=== PATIENT | male | born 1980 | race Caucasian/White ===

== ENCOUNTER → 2020-01-10 15:22 | Outpatient (CLI) | payer OTHER, SELFPAY ==
--- NOTE | ~2020-01-10 | CT_ITS ---
EXAMINATION: CT abdomen pelvis w con EXAM DATE: 01/10/2020 16:00 INDICATION: Left lower quadrant abdominal pain. Nausea. TECHNIQUE: Spiral CT of the abdomen and pelvis was performed following intravenous injection of 100 m L Omnipaque 350. Axial, coronal and sagittal images were reviewed. The dose-length product (DLP) fo r this examination was 1242.19 mGy-cm. The exposure was tailored according to patient size (auto mA exposure control), and iterative reconstruction (ASIR) was used as additional dose reduction techniqu e. Comparison is made to prior examination from 12/02/2016. FINDINGS: The liver, spleen, adrenal glands and pancreas are unremarkable. There are cholecystectomy clips. Portal and splenic veins are patent. Kidneys enhance symmetrically. There is no hydronephr osis. There is a left renal hypodensity likely cyst measuring 1.3 cm. The prostate is unremarkable. The bladder is unremarkable. There is no retroperitoneal or pelvic lymphadenopathy. Small umbilic al fat-containing hernia. The appendix is normal. There is mild to moderate descending and sigmoid colonic diverticulosis. The re is no adjacent inflammatory change to suggest diverticulitis. The stomach and small bowel are unre markable. There is expected amount of colonic stool. No free intraperitoneal gas. The heart is n ormal in size. There are no pericardial or pleural effusions. The lung bases are unremarkable. The bones are unremarkable. IMPRESSION: 1. No acute intra-abdominal findings. 2. Mild to moderate colonic diverticulosis. Reviewed, dictated and finalized at location A. PERSON
== END ==
PROVIDERS: PCP Internal Medicine; Visit Provider Internal Medicine
DX: R10.9 Unspecified abdominal pain (principal); K57.90 Diverticulosis of intestine, part unspecified, without perforation or abscess without bleeding
CPT/HCPCS: 74177; Q9967

== ENCOUNTER 2024-04-20 08:15 | Emergency (ER) | payer OTHER, SELFPAY ==
[2024-04-20] VITALS (18 sets, daily range): BP systolic 115–146; BP diastolic 86–110; PULSE 97–112; RESP 2–22; TEMP 36.7–36.8; O2SAT 96–98
--- NOTE | ~2024-04-20 | CT_ITS ---
CT of the Abdomen and Pelvis: Indication: Abdominal pain Technique: 2.5 mm axial scans were obtained through the abdomen and pelvis following intravenous adm inistration of 100 cc of Omnipaque 350. Dose reduction technique was used on this scan by utilizing a utomated exposure control and iterative reconstruction technique. The dose-length product (DLP) was 1 834.73 mGy-cm. Findings: Scans through the lung bases are unremarkable. The liver, spleen, pancreas, adrenals and kidneys are within normal limits, aside from probable left renal cyst. Cholecystectomy clips are present. No evidence of aortic aneurysm. No lymphadenopathy. No bowel obstruction or bowel wall thickening. There is focal ring shaped area of inflammatory change with central fat attenuation in the left upper quadrant, suggestive of epiploic appendagitis or othe r focal fat necrosis or omental infarct (axial image 84) disease.. Images through the pelvis were performed. Urinary bladder unremarkable. No pelvic mass seen. No ascit es. Impression: Findings consistent with epiploic appendagitis or other focal fat necrosis/omental infarct in the lef t upper quadrant, as detailed above. Reviewed, dictated and finalized at location . Impression: Findings consistent with epiploic appendagitis or other focal fat necrosis/omen krystin infarct in the left upper quadrant, as detailed above.
--- NOTE | ~2024-04-20 | XR_ITS ---
EXAMINATION: XR chest 1V portable DATE: 04/20/2024 08:48 INDICATION: Central chest pain. TECHNIQUE: A single frontal view of the chest was obtained. COMPARISON: Chest 2 views 12/27/16 FINDINGS: Again seen is mild elevation of right hemidiaphragm. No pneumonia, pleural effusion, or pne umothorax. The heart size is normal. IMPRESSION: 1. No acute cardiopulmonary disease. Reviewed, dictated and finalized at location A.
--- NOTE | 2024-04-20 08:20 | ECG_ITS ---
[facility] [address] Test Date: 2024-04-20 Pat Name: Marito Alvares Department: Room: Gender: M Manager Icu: : 1980 Requested By: Harmeet Hannon Order Number: [id number] Jeanette MD: Nick Gaxiola D.O. Measurements Intervals [place] Rate: 105 P: 44 VT: 152 QRS: 20 QRSD: 93 T: 15 QT: 339 QTc: 449 Interpretive Statements SINUS TACHYCARDIA BORDERLINE ECG No previous ECG available for comparison Electronically Signed On 04-20-2024 09:27:34 CDT by Nick Gaxiola D.O.
[2024-04-20 08:41] LABS: Basophils Absolute Auto 0.1 K/mm3 (0.0-0.1); Basophils Percent Auto 0.6 % (0.2-1.2); Eosinophils Absolute Auto 0.1 K/mm3 (0-0.3); Eosinophils Percent Auto 0.9 % (0-4.4); Hemoglobin 17.7 g/dL (14.0-18.0); Immature Granulocyte Absolute 0.06 K/mm3 (0.00-0.031); Immature Granulocyte Percent A 0.6 % (0-0.5); Lymphocytes Absolute Auto 4.82 K/mm3 (0.9-3.2); Mean Corpuscular HGB Conc 32.8 g/dl (32-36); Mean Corpuscular Volume 85.3 fl (80-100); Mean Platelet Volume 9.5 fl (7.4-10.4); Monocytes Absolute Auto 0.6 K/mm3 (0.1-0.6); Monocytes Percent Auto 5.7 % (2.6-8.5); Neutrophils Absolute Auto 5.1 K/mm3 (1.3-6.7); Neutrophils Percent Auto 47.2 % (45.5-73.1); Platelet Count Result 449 k/mm3 (150-375); Red Blood Count 6.33 M/mm3 (4.6-6.20); Red Cell Distribution Width 13.7 % (11.5-14.5); White Blood Count 10.7 K/mm3 (4.5-10.0)
[2024-04-20 08:52] LABS: Alanine Aminotransferase 18 U/L (6-50); Albumin Level 4.6 g/dL (3.5-5.1); Alkaline Phosphatase 116 U/L (38-126); Anion Gap 9 mmol/L (4-12); Aspartate Amino Transferase 23 U/L (17-59); Bilirubin,Total 0.8 mg/dL (0.2-1.3); Blood Urea Nitrogen 6 mg/dL (9-20); Carbon Dioxide 27 mmol/L (22-30); Chloride 101 mmol/L (98-107); Estimated CRCL calculation 151 ml/min; Estimated Glomerular Filt Rate > 60; Glucose 146 mg/dL (65-110); Lipase 77 U/L (23-300); Sodium 137 mmol/L (137-145)
[2024-04-20 08:53] LABS: INR 0.9
[2024-04-20 08:54] LABS: Partial Thromboplastin Time 28.6 Seconds (22.3-36.8)
[2024-04-20 09:03] LABS: Troponin I < 0.012 ng/mL (0.000-0.034)
--- NOTE | 2024-04-20 11:52 | ECG_ITS ---
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 Measurements Intervals [place] Rate: 105 P: 38 SD: 145 QRS: 19 QRSD: 84 T: 5 QT: 346 QTc: 459 Interpretive Statements SINUS TACHYCARDIA WITH OCCASIONAL SUPRAVENTRICULAR PREMATURE COMPLEXES LOW QRS VOLTAGE IN PRECORDIAL LEADS MINIMAL Q WAVES- INFERIOR LEADS BASELINE ARTIFACT- I, II, III, AVR, AVL, AVF, V1 BORDERLINE ECG Compared to ECG 04/20/2024 08:25:44 Low QRS voltage now present Electronically Signed On 04-20-2024 12:19:47 CDT by Nick Gaxiola D.O.
[2024-04-20 12:30] LABS: Troponin I < 0.012 ng/mL (0.000-0.034)
--- NOTE | 2024-04-20 12:46 | ED.ABDPAIN ---
HPI - Abdominal Pain General Chief Complaint: Abdominal Pain Stated Complaint: abdominal pain Time Seen by Provider: 04/20/24 08:49 Source: patient Mode of arrival: ambulatory Limitations: no limitations History of Present Illness HPI narrative: 43-year-old with a history of diverticulitis, diabetes here with a complaint of upper abdominal pain started this morning. Patient states that he was diagnosed with diverticulitis a few weeks ago was started on Cipro however patient has not taken the medication as it was giving him or abdominal pain. He denied any nausea vomiting. Denies any previous history of CAD. Patient states the pain was mostly in the epigastric area. MD elicited complaint: abdominal pain Onset (ago): hour(s) (4) Pain Consistency: constant Location: epigastric Severity: mild Quality: aching Radiation: none Migration to: no migration Exacerbating factors: nothing Relieving factors: nothing Associated symptoms: denies other symptoms Related Data Home Medications Medication Instructions Recorded Confirmed colestipol 1 gram tablet 1 g PO ONCE 09/16/23 09/19/23 famotidine 40 mg tablet 40 mg PO DAILY 09/16/23 09/19/23 glimepiride 1 mg tablet 1 mg PO QAM 09/16/23 09/19/23 pantoprazole 20 mg tablet,delayed 20 mg PO QAM 09/16/23 09/19/23 release tramadol 50 mg tablet 50 mg PO Q6H PRN 09/16/23 09/19/23 Allergies Allergy/AdvReac Type Severity Reaction Status Date / Time amoxicillin Allergy Unknown Unknown Verified 09/16/23 08:51 Review of Systems Review of Systems: All systems reviewed & are unremarkable except as noted in HPI and below Constitutional: Constitutional: Reports no additional constitutional complaints Eyes: Eyes: Reports no additional eye complaints ENT: Reports system reviewed and no additional complaints, except as documented Cardiovascular: Cardiovascular: Reports no additional cardiovascular complaints Respiratory: Respiratory: Reports no additional respiratory complaints Gastrointestinal: Gastrointestinal: Reports as per HPI Musculoskeletal: Musculoskeletal: Reports no additional musculoskeletal complaints Neurologic: Reports system reviewed and no additional complaints, except as documented Psychiatric: Psychiatric: Reports no additional psychiatric complaints [facility] Past Medical History Medical History Depression GERD (gastroesophageal reflux disease) Hyperlipidemia Hypertension Kidney stones Surgical History Surgical History History of rectal surgery removal of neuroendocrine tumor in 2018 at [facility] Hx of cholecystectomy Family History Family History Other Cancer Diabetes mellitus Hypertension Social History Social History Smoking status: Never smoker Alcohol intake: never Additional occupation/education comments: disabled Exam Narrative: GENERAL: Well-appearing, well-nourished, and in no acute distress. HEAD: Normocephalic, atraumatic. EYES: PERRLA and EOMI. ENT: Nares clear, no rhinorrhea or epistaxis. Mucous membranes moist. NECK: Supple. CHEST: Clear to auscultation. No respiratory distress. HEART: Regular rate and rhythm. No murmur heard. Normal peripheral pulses. ABDOMEN: Soft, epi gastric tendenessr, nondistended, normal active bowel sounds. EXTREMITIES: Normal range of motion. No edema. SKIN: Warm, dry, no rash. NEURO: No focal deficits. Alert and oriented x3. PSYCH: Normal mood and affect. Course Course Emergency Course: Notified patient and his about the lab work, CT findings. I discussed with Dr. Margarita bowden conservative management at this time. Advised him to continue his home medications, follow-up with his primary doctor. Patient has had tramadol at home for pain control. Advised him to take continue his
== END 2024-04-20 13:04 | disposition home or self-care (01) ==
PROVIDERS: Emergency Provider Family Medicine
DX: K63.89 Other specified diseases of intestine (principal); R10.10 Upper abdominal pain, unspecified; Z79.84 Long term (current) use of oral hypoglycemic drugs; I10 Essential (primary) hypertension; E78.5 Hyperlipidemia, unspecified; K21.9 Gastro-esophageal reflux disease without esophagitis; F32.A Depression, unspecified
CPT/HCPCS: 36415; 71045; 74177; 80053; 83690; 84484; 85025; 85610; 85730; 93005; 99284; Q9967

== ENCOUNTER 2025-02-04 21:33 | Emergency (ER) | payer OTHER, SELFPAY ==
--- NOTE | ~2025-02-04 | CT_ITS ---
CT of the Abdomen and Pelvis: Indication: Abdominal pain Technique: 2.5 mm axial scans were obtained through the abdomen and pelvis following intravenous adm inistration of 100 cc of Omnipaque 350. Dose reduction technique was used on this scan by utilizing a utomated exposure control and iterative reconstruction technique. The dose-length product (DLP) was 1 836.88 mGy-cm. COMPARISON: 04/20/2024 Findings: Scans through the lung bases are unremarkable. The liver, spleen, pancreas, adrenals and kidneys are within normal limits. Cholecystectomy clips are present. No evidence of aortic aneurysm. No lymphadenopathy. There is wall thickening and inflammatory change of the mid sigmoid colon with underlying diverticula r disease, compatible with acute diverticulitis. No abscess or free air. No bowel obstruction. Images through the pelvis were performed. Urinary bladder unremarkable. No pelvic mass seen. No ascit es. Impression: Acute sigmoid diverticulitis. No abscess or free air. No bowel obstruction. Reviewed, dictated and finalized at [facility]. Impression: Acute sigmoid diverticulitis. No abscess or free air. No bowel obstruction.
--- OUTSIDE RECORDS SUMMARY | 2025-02-04 21:35 | XMS_ITS | Data Portability ---
Author Organization [place] [facility] [place], Main Office Address [address] [place] [address] Assessment Encounter Date Assessment Date Assessment LastModified by Organization Details LastModified Time 07/13/2023 07/13/2023 Blood work continue current therapy follow-up with me in 4 months he will also be follow-up with his surgeon omari Not available 07/13/2023 21:43:43 Plan of Treatment Reminders Order Date Submit Date Provider Last Modified By Organization Details Last Modified Time Details Appointments None recorded . Lab HbA1c (hemoglo bin A1c), blood 023 07/13/20 [email or web address] 25 [facility] [place], [address] [place] [address], [address], 4 12:23:28 lipid panel, serum 023 07/13/20 [facility] [place], [address] [place] [address], [address], 3 21:02:42 CMP, serum or plasma 023 07/13/20 [facility] [place], [address] [place] [address], [address], 3 21:02:57 CBC w/ auto diff 023 07/13/20 [facility] [place], [address] [place] [address], [address], 16:59:42 Referral None recorded . Procedures None recorded . Surgeries None recorded . Imaging None recorded . Medication Orders None recorded . Patient TargetsNo targets recorded. Patient InstructionsNo instructions recorded. Reason for Referral None Reported. Results Created Date Observation Date Name Description Value Unit Range Abnormal Flag Note LastModifiedBy Organization Detail LastModifiedTime 07/13/2007/13/2023 CBC/C OMPLE TE BLD COUNT W/DIF F white blood cells 11.8 x10'3 /uL 4.2-10 .8 high Not Available [facility] (Lab) [address] [place], [address], 07/13/2023 16:59:42 07/13/2007/13/2023 CBC/C OMPLE TE BLD COUNT W/DIF F red blood cells 5.95 x10'6 /uL 4.10-5 .80 high Not Available [facility] (Lab) [address] [place], [address], 07/13/2023 16:59:42 07/13/2007/13/2023 CBC/C OMPLE TE BLD COUNT W/DIF F hemoglobin 16.6 g/dL 13.2-1 7.0 Not Available [facility] (Lab) [address] [place], [address], 07/13/2023 16:59:42 07/13/2007/13/2023 CBC/C OMPLE TE BLD COUNT W/DIF F hematocrit 51.1 % 39.3-5 0.0 high Not Available [facility] (Lab) [address] [place], [address], 07/13/2023 16:59:42 07/13/2007/13/2023 CBC/C OMPLE TE BLD COUNT W/DIF F mean red cell volume 85.9 fL 80.0-9 7.0 Not Available [facility] (Lab) [address] [place], [address], 07/13/2023 16:59:42 07/13/2007/13/2023 CBC/C OMPLE TE BLD COUNT W/DIF F mean red cell hemoglobin 27.9 pg 27.0-3 3.0 Not Available [facility] (Lab) [address] [place], [address], 07/13/2023 16:59:42 07/13/2007/13/2023 CBC/C OMPLE TE BLD COUNT W/DIF F mean RBC HGB concentratio n 32.5 g/dL 31.0-3 6.0 Not Available [facility] (Lab) [address] [place], [address], 07/13/2023 16:59:42 07/13/2007/13/2023 CBC/C OMPLE TE BLD COUNT W/DIF F red cell distribution width 14.5 % 11.8-1 5.5 Not Available [facility] (Lab) [address] [place], [address], 07/13/2023 16:59:42 07/13/2007/13/2023 CBC/C OMPLE TE BLD COUNT W/DIF F platelets 434 x10'3 /uL 150-40 0 high Not Available [facility] (Lab) [address] [place], [address], 07/13/2023 16:59:42 07/13/2007/13/2023 CBC/C OMPLE TE BLD COUNT W/DIF F mean platelet volume 9.8 fL 9.0-12 .4 Not Available [facility] (Lab) [address] [place], [address], 07/13/2023 16:59:42 07/13/20 23 07/13/2023 CBC/C OMPLE TE BLD COUNT W/DIF F neutrophils 64.1 % 39.0-7 2.0 Not Available [facility] (Lab) [address] [place], [address], 07/13/2023 16:59:42 07/13/2007/13/2023 CBC/C OMPLE TE BLD COUNT W/DIF F lymphocytes 28.0 % 16.0-4 7.0 Not Available [facility] (Lab) [address] [place], [address], 07/13/2023 16:59:42 07/13/2007/13/2023 CBC/C OMPLE TE BLD COUNT W/DIF F monocytes 6.3 % 5.0-12 .0 Not Available [facility] (Lab) [address] [place], [address], 07/13/2023 16:59:42 07/13/2007/13/2023 CBC/C OMPLE TE BLD COUNT W/DIF F eosinophils 0.6 % 1.0-7. 0 low Not Available [facility] (Lab) [address] [place], [address], 07/13/2023 16:59:42 07/13/2007/13/2023 CBC/C OMPLE TE BLD COUNT W/DIF F basophils 0.4 % 0.0-2. 0 Not Available [facility] (Lab) [address] [place], [address], 07/13/2023 16:59:42 07/13/2007/13/2023 CBC/C OMPLE TE BLD COUNT W/DIF F immature granulocytes 0.6 % 0.00-0 .50 high Not Available [facility] (Lab) [address] [place], [address], 07/13/2023 16:59:42 07/13/2007/13/2023 CBC/C OMPLE TE BLD COUNT W/DIF F neutrophils, absolute count 7.57 x10'3 /uL 1.5-8. 0 Not Available [facility] (Lab) [address] [place], [address], 07/13/2023 16:59:42 07/13/2007/13/2023 CBC/C OMPLE TE BLD COUNT W/DIF F lymphocytes, absolute count 3.31 x10'3 /uL 1.07-3 .43 Not Available [facility] (Lab) [address] [place], [address], 07/13/2023 16:59:42 07/13/2007/13/2023 CBC/C OMPLE TE BLD COUNT W/DIF F monocytes, absolute count 0.75 x10'3 /uL 0.29-0 .99 Not Available [facility] (Lab) [address] [place], [address], 07/13/2023 16:59:42 07/13/2007/13/2023 CBC/C OMPLE TE BLD COUNT W/DIF F eosinophils, absolute count 0.07 x10'3 /uL 0.02-0 .53 Not Available [facility] (Lab) [address] [place], [address], 07/13/2023 16:59:42 07/13/2007/13/2023 CBC/C OMPLE TE BLD COUNT W/DIF F basophils, absolute count 0.05 x10'3 /uL 0.01-0 .08 Not Available [facility] (Lab) [address] [place], [address], 07/13/2023 16:59:42 07/13/2007/13/2023 CBC/C OMPLE TE BLD COUNT W/DIF F immature granulocytes ,absolute 0.07 x10'3 /uL 0.00-0 .05 high Not Available [facility] (Lab) [address] [place], [address], 07/13/2023 16:59:42 07/13/2007/13/2023 CBC/C OMPLE TE BLD COUNT W/DIF F nucleated red blood cells 0.0 % -0 Not Available [facility] (Lab) [address] [place], [address], 07/13/2023 16:59:42 07/13/20 23 07/13/2023 CBC/C OMPLE TE BLD COUNT W/DIF F NRBC# 0.00 x10'3 /uL Not Available [facility] (Lab) [address] [place], [address], 07/13/2023 16:59:42 07/13/2007/13/2023 LIPID PANEL cholesterol 206 mg/dL 140-19 9 high NIH ANGELO NSUS RECOM MENDA TION FOR JOESPH STERO L: ADULT CHILD LOW RISK: <200 <170 BORDE RLINE : <200- 239 ----- HIGH RISK: >240 >200 Not Available [facility] (Lab) [address] [place], [address], 07/13/2023 21:02:42 07/13/2007/13/2023 LIPID PANEL triglyceride s 211 mg/dL 0-150 high NIH ANGELO NSUS REPOR T RECOM MENDA TION FOR TRIGL YCERI VICKIE: ADULT CHILD LOW RISK: <150 ----- BODER LINE: 150-1 99 ----- HIGH RISK: >200 ----- Not Available [facility] (Lab) [address] [place], [address], 07/13/2023 21:02:42 07/13/20 23 07/13/2023 LIPID PANEL HDL cholesterol 29 mg/dL 40- low Not Available [facility] (Lab) [address] [place] [address], [address], 07/13/2023 21:02:42 07/13/2007/13/2023 LIPID PANEL LDL cholesterol, calculated 135 mg/dL 0-130 high NIH ANGELO NSUS REPOR T RECOM MENDA TIONS FOR LDL: ADULT CHILD LOW RISK <130 <110 (OPTI MAL LDL) <100 ----- BORDE RLINE : 130-1 59 ----- HIGH RISK: >160 >130 A TRIGL YCERI DE RESUL T >400 INVAL IDATE S THE CALCU LATIO N FOR LDL FRACT IONAT ION - THE LDL RESUL T WILL NOT BE REPOR YESY. Not Available [facility] (Lab) [address] [place], [address], 07/13/2023 21:02:42 07/13/2007/13/2023 COMPR EHENS LATHA METAB OLIC PANEL sodium 138 mmol/ L 137-14 5 Not Available [facility] (Lab) [address] [place], [address], 07/13/2023 21:02:57 07/13/2007/13/2023 COMPR EHENS LATHA METAB OLIC PANEL potassium 4.1 mmol/ L 3.5-5. 1 Not Available [facility] (Lab) [address] [place], [address], 07/13/2023 21:02:57 07/13/2007/13/2023 COMPR EHENS LATHA METAB OLIC PANEL chloride 97 mmol/ L 98-107 low Not Available [facility] (Lab) [address] [place], [address], 07/13/2023 21:02:57 07/13/2007/13/2023 COMPR EHENS LATHA METAB OLIC PANEL carbon dioxide 30 mmol/ L 22-30 Not Available [facility] (Lab) [address] [place], [address], 07/13/2023 21:02:57 07/13/2007/13/2023 COMPR EHENS LATHA METAB OLIC PANEL anion gap 15.1 mmol/ L 14-22 Not Available [facility] (Lab) [address] [place], [address], 07/13/2023 21:02:57 07/13/2007/13/2023 COMPR EHENS LATHA METAB OLIC PANEL glucose 110 mg/dL 70-99 high Not Available [facility] (Lab) [address] [place], [address], 07/13/2023 21:02:57 07/13/2007/13/2023 COMPR EHENS LATHA METAB OLIC PANEL BUN 8 mg/dL 8-19 Not Available [facility] (Lab) [address] [place], [address], 07/13/2023 21:02:57 07/13/2007/13/2023 COMPR EHENS LATHA METAB OLIC PANEL creatinine 0.92 mg/dL 0.66-1 .25 Not Available [facility] (Lab) [address] [place], [address], 07/13/2023 21:02:57 07/13/2007/13/2023 COMPR EHENS LATHA METAB OLIC PANEL GFR >60 Refer ence Range : [place] ge GFR Healt hy Adult : >60 mL/mi n/1.7 3 m2 Chron ic Kidne y Disea se: 15-60 mL/mi n/1.7 3 m2 Kidne y Failu re: <15/m L/min /1.73 m2 www.n iddk. nih.g ov The MDRD study equat ion has not been valid ated in child molly <18 years of age; pregn ant women ; the elder ly >85 years of age; or in some racia l or ethni c subgr oups, such as Hispa nics. Outsi de the valid ated wil eters , estim ated GFR is less accur ate, requi ring clini ismael judgm ent on a case- by-ca se basis . Clini ismael inter preta tion for other races and ages must be made by the clini isrrael. The MDRD study equat ion has not been valid ated for the evalu ation of serum creat inine relat ed to nutri francine l statu s or medic ation usage . For perso ns <18 years of age, a pedia tric GFR calcu lator is avail able on the [facility] websi te: https :[email or web address] [email or web address].[email or web address] [email or web address]/[email or web address] díaz s/kdo qi/gf r_cal culat or Not Available [facility] (Lab) [address] [place], [address], 07/13/2023 21:02:57 07/13/2007/13/2023 COMPR EHENS LATHA METAB OLIC PANEL alkaline phosphatase 121 U/L 38-126 Not Available [facility] (Lab) [address] [place], [address], 07/13/2023 21:02:57 07/13/2007/13/2023 COMPR EHENS LATHA METAB OLIC PANEL alanine aminotransfe rase 21 U/L 0-50 Not Available [facility] (Lab) [address] [place], [address], 07/13/2023 21:02:57 07/13/20 23 07/13/2023 COMPR EHENS LATHA METAB OLIC PANEL aspartate aminotransfe rase 24 U/L 15-46 Not Available [facility] (Lab) [address] [place], [address], 07/13/2023 21:02:57 07/13/2007/13/2023 COMPR EHENS LATHA METAB OLIC PANEL bilirubin, total 0.70 mg/dL 0.20-1 .30 Not Available [facility] (Lab) [address] [place], [address], 07/13/2023 21:02:57 07/13/2007/13/2023 COMPR EHENS LATHA METAB OLIC PANEL calcium 9.4 mg/dL 8.4-10 .2 Not Available [facility] (Lab) [address] [place], [address], 07/13/2023 21:02:57 07/13/20 23 07/13/2023 COMPR EHENS LATHA METAB OLIC PANEL total protein 7.7 g/dL 6.3-8. 2 Not Available [facility] (Lab) [address] [place], [address], 07/13/2023 21:02:57 07/13/20 23 07/13/2023 COMPR EHENS LATHA METAB OLIC PANEL albumin 4.2 g/dL 3.4-5. 0 Not Available [facility] (Lab) [address] [place], [address], 07/13/2023 21:02:57 07/13/2007/13/2023 COMPR EHENS LATHA METAB OLIC PANEL globulin 3.5 g/dL 2.6-4. 2 Not Available [facility] (Lab) [address] [place], [address], 07/13/2023 21:02:57 07/13/2007/13/2023 COMPR EHENS LATHA METAB OLIC PANEL A/G ratio 1.2 ratio 1.0-2. 0 Not Available [facility] (Lab) [address] [place], [address], 07/13/2023 21:02:57 07/13/2007/13/2023 HEMOG LOBIN A1C HA1C 6.1 % 4.0-6. 0 high Diabe chapo Scree gisselle Crite sultana: <5.7% Consi stent with absen ce of diabe chapo 5.7-6 .4% Consi stent with incre ased risk for diabe chapo (pred iabet es) >OR=6 .5% Consi stent with diabe chapo REFER ENCE: Diabe chapo Care 2016, 39(Singletary ppl.1 ):s13 -s22 Not Available [facility] (Lab) [address] [place], [address], 07/13/2023 21:10:05 01/30/04/26/2017 polys omnog renata, titra tion study No observ ation record ed. [id number] Not Available 01/19/2023 03:17:12 Result Notes None recorded. Problems Name Problem SNOMED Code Status Onset Date Resolution Date Notes Provider Name and Address Organization Details Recorded Time Abdominal pain 39180194 Active 2022 Not Available [facility] 3 00:04:43 Cellulitis of foot 695518373 Active Not Available [facility] 3 00:04:43 Chronic back pain 094800546 Active Not Available [facility] 3 00:04:43 Orchitis and epididymitis 808788150 Active Not Available [facility] 3 00:04:43 Gastroesophag eal reflux disease 839065809 Active Not Available [facility] 3 00:04:43 Low back pain 968782045 Active Not Available [facility] 3 00:04:43 Diverticuliti s 457246174 Active 2021 Not Available [facility] 3 00:04:43 Bronchitis 90629777 Active Not Available [facility] 3 00:04:43 Hypertensive disorder 35834063 Active Not Available [facility] 3 00:04:43 Body mass index 40+ - severely obese 553356296 Active 2018 Not Available [facility] 3 00:04:43 Obesity 497382865 Active Not Available [facility] 3 00:04:43 Type 2 diabetes mellitus 01191836 Active 2019 Not Available [facility] 3 00:04:43 Anxiety 85806451 Active 2021 Not Available [facility] 3 00:04:43 Essential hypertension 07703235 Active Not Available [facility] 3 00:04:43 Urinary tract infectious disease 68863272 Active Not Available [facility] 3 00:04:43 Rhinitis 74489175 Active Not Available [facility] 3 00:04:43 Obstructive sleep apnea syndrome 55944204 Active 2018 Not Available [facility] 3 00:04:43 Chronic rhinitis 51832000 Active Not Available [facility] 3 00:04:43 Umbilical hernia 099673097 Active 2022 Vandana Borges null, [facility] 3 20:27:02 Upper respiratory infection 55945691 Active 2022 [facility] 3 16:56:14 Problem Notes None recorded. Procedures Surgical History Date Name Laterality Status Provider Name and Address Organization Details Recorded Time Cholecystectomy completed Not Available [facility] 01/19/2023 03:00:19 Tonsillectomy completed Not Available [facility] 01/19/2023 03:00:19 Imaging Results Imaging Date Name Status LastModified by Organiz ation Details LastModified Time 04/26/2017 polysomnogram, titration study completed [id number] Information not available 01/19/2023 03:17:12 Procedure Notes None recorded. Medical Equipment None Reported. Allergies Allergen ID Allergen Name Allergen Category Reaction Reaction Severity Criticality Documentation Date Start Date Code Code System Note Provider Name and Address Organization Details Recorded Time 5732 Augmentin medicatio n Not available Not available Not available 01/19/2023 13855 2 RxNorm Not Available [facility] 3 03:16:42 5733 Amoxil medicatio n Not available Not available Not available 01/19/2023 48171 9 RxNorm pain in chest Not Available [facility] 3 03:16:42 5734 amoxicill in medicatio n Not available Not available Not available 01/19/2023 723 RxNorm Not Available [facility] 3 03:16:42 Medications Name Sig Start Date Stop Date Status Note LastModified by Organization Details LastModified Time losartan 50 mg tablet Take 1 tablet every day by oral route. 2021 active Medicati on ordered by Dr Anibal mueller gist Not Available Not Available Not Available cyclobenz aprine 10 mg tablet 03/02 completed Not Available Not Available Not Available amoxicill in 500 mg capsule TAKE 1 CAPSULE BY MOUTH 4 TIMES DAILY FOR 7 DAYS UNTIL GONE 10/07 completed Not Available Not Available Not Available buspirone 5 mg tablet 01/24 completed Not Available Not Available Not Available metformin 500 mg tablet TAKE 1 TABLET BY MOUTH ONCE DAILY active Not Available Not Available No t Available nystatin 100,000 unit/mL oral suspensio n SWISH & SWALLOW 5 ML THREE TIMES DAILY FOR 10 DAYS 10/07 completed Not Available Not Available Not Available prednison e 10 mg tablet 3 tabs x 2 days 2 tabs x 2 days, 1 tab x 2 days active Not Available Not Available No t Available doxycycli ne hyclate 100 mg capsule Take 1 capsule twice a day by oral route for 7 days. 07/13 completed Not Available Not Available Not Available Carafate 100 mg/mL oral suspensio n 12/19 completed Not Available Not Available Not Available atorvasta tin 10 mg tablet TAKE 1 TABLET BY MOUTH ONCE DAILY 10/07 completed Not Available Not Available Not Available azithromy santiago 250 mg tablet TAKE 2 TABLETS BY MOUTH ON DAY 1, AND THEN TAKE 1 TABLET BY MOUTH ONCE A DAY ON DAY 2 THROUGH DAY 5 active Not Available Not Available No t Available Lidocaine Viscous 2 % mucosal solution 03/09 completed Not Available Not Available Not Available benzonata te 200 mg capsule Take 1 capsule 3 times a day by oral route. active Not Available Not Available No t Available hydrocodo ne 5 mg-acetam inophen 325 mg tablet Take 1 tablet every 6 hours by oral route. 10/26 completed Not Available Not Available Not Available sucralfat e 1 gram tablet Take 1 tablet 4 times a day by oral route before meals for 30 days. active Not Available Not Available No t Available Levaquin 750 mg tablet Take 1 tablet every day by oral route for 7 days. active Not Available Not Available No t Available ondansetr on HCl 4 mg tablet Take 1 tablet 4 times a day by oral route as needed. 12/01 completed Not Available Not Available Not Available famotidin e 40 mg tablet TAKE 1 TABLET BY MOUTH ONCE DAILY active Not Available Not Available No t Available prednison e 20 mg tablet TK 3 TS PO QD FOR 5 DAYS active Not Available Not Available No t Available Peridex 0.12 % mouthwash Place 15 mL twice a day by mucous membrane route. 03/09 completed Not Available Not Available Not Available gabapenti n 400 mg capsule Take 1 capsule 3 times a day by oral route for 30 days. 10/26 completed Not Available Not Available Not Available Diflucan 150 mg tablet Take 1 tablet every 72 hours by oral route for 9 days. 03/09 completed Not Available Not Available Not Available metronida zole 500 mg tablet TAKE 1 TABLET BY MOUTH THREE TIMES DAILY FOR 7 DAYS active Not Available Not Available No t Available prochlorp erazine maleate 10 mg tablet 07/24 completed Not Available Not Available Not Available ciproflox acin 500 mg tablet TAKE 1 TABLET BY MOUTH TWICE DAILY FOR 7 DAYS active Not Available Not Available No t Available sulfameth oxazole 800 mg-trimet hoprim 160 mg tablet 12/20 completed Not Available Not Available Not Available hydrocodo ne 10 mg-acetam inophen 325 mg tablet Take 1 tablet every day by oral route for 20 days. 07/29 completed called into pharm, spoke with Connor Not Available Not Available Not Available omeprazol e 40 mg capsule,d elayed release Take 1 capsule every day by oral route for 30 days. active Not Available Not Available No t Available tramadol 50 mg tablet TAKE 1 TABLET BY MOUTH THREE TIMES DAILY FOR 30 DAYS active Not Available Not Available No t Available triamcino lone acetonide 0.1 % topical cream APPLY A THIN LAYER TO THE AFFECTED AREA(S) BY TOPICAL ROUTE 2 TIMES PER DAY 12/19 completed Not Available Not Available Not Available glimepiri de 1 mg tablet TAKE 1 TABLET BY MOUTH ONCE DAILY active Not Available Not Available No t Available pantopraz ole 20 mg tablet,de layed release TAKE 1 TABLET BY MOUTH TWICE DAILY active Not Available Not Available No t Available nortripty line 25 mg capsule 06/07 completed Not Available Not Available Not Available oxycodone -acetamin ophen 5 mg-325 mg tablet 03/09 completed Not Available Not Available Not Available famotidin e 20 mg tablet TAKE 1 TABLET BY MOUTH TWICE DAILY active Not Available Not Available No t Available tamsulosi n 0.4 mg capsule 03/09 completed Not Available Not Available Not Available dicyclomi ne 20 mg tablet 12/20 completed Not Available Not Available Not Available pantopraz ole 40 mg tablet,de layed release 2 tablets po BID 04/04 completed Not Available Not Available Not Available hyoscyami ne sulfate 0.125 mg tablet 10/07 completed Not Available Not Available Not Available oseltamiv ir 75 mg capsule TAKE 1 CAPSULE BY MOUTH TWICE DAILY FOR 5 DAYS 03/21 completed Not Available Not Available Not Available esomepraz ole magnesium 40 mg capsule,d elayed release 04/04 completed Not Available Not Available Not Available ranitidin e 150 mg tablet Take 1 tablet twice a day by oral route for 30 days. 04/04 completed Not Available Not Available Not Available lisinopri l 10 mg tablet Take 1 tablet every day by oral route. 07/01 completed Not Available Not Available Not Available promethaz ine 25 mg tablet Take 1 tablet every 6 hours by oral route. 03/09 completed Not Available Not Available Not Available omeprazol e 20 mg capsule,d elayed release Take 1 capsule every day by oral route. 03/09 completed Not Available Not Available Not Available monteluka st 10 mg tablet Take 1 tablet every day by oral route. 06/07 completed Not Available Not Available Not Available ranitidin e 150 mg capsule TAKE 1 CAPSULE BY MOUTH TWICE DAILY NEEDED 12/10 completed Not Available Not Available Not Available mupirocin 2 % topical ointment 12/19 completed Not Available Not Available Not Available furosemid e 20 mg tablet Take 1 tablet every day by oral route as needed. 04/04 completed Not Available Not Available Not Available gabapenti n 100 mg capsule Take 1 capsule 3 times a day by oral route. 07/01 completed Not Available Not Available Not Available lisinopri l 10 mg-hydroc hlorothia zide 12.5 mg tablet 1/2 tab daily 01/24 completed Not Available Not Available Not Available cefuroxim e axetil 500 mg tablet Take 1 tablet every 12 hours by oral route for 21 days. active Not Available Not Available No t Available levofloxa santiago 500 mg tablet TAKE 1 TABLET BY MOUTH ONCE DAILY FOR 7 DAYS 07/13 completed Not Available Not Available Not Available methylpre dnisolone 4 mg tablets in a dose pack TAKE DIRECTED active Not Available Not Available No t Available albuterol sulfate HFA 90 mcg/actua tion aerosol inhaler Inhale 2 puffs every 4 hours by inhalati on route as needed. active Not Available Not Available No t Available Vitamin D2 1,250 mcg (50,000 unit) capsule Take 1 capsule every week by oral route for 90 days. 07/24 completed Not Available Not Available Not Available ondansetr on 4 mg disintegr ating tablet 10/26 completed Not Available Not Available Not Available cefdinir 300 mg capsule Take 1 capsule twice a day by oral route for 8 days. active Not Available Not Available No t Available fluticaso ne propionat e 50 mcg/actua tion nasal spray,yariel pension [place] 1 spray every day by intranas al route. 04/04 completed Not Available Not Available Not Available colestipo l 1 gram tablet TAKE 2 TABLETS BY MOUTH TWICE DAILY active Not Available Not Available No t Available doxycycli ne hyclate 100 mg tablet Take 1 tablet twice a day by oral route. active Not Available Not Available No t Available naproxen 500 mg tablet 06/07 completed Not Available Not Available Not Available diazepam 5 mg tablet 03/09 completed Not Available Not Available Not Available amoxicill in 875 mg-potass ium clavulana te 125 mg tablet TAKE 1 TABLET BY MOUTH TWICE DAILY FOR 7 DAYS 03/21 completed Not Available Not Available Not Available Blood Glucose Test strips use to test blood sugar twice a week DX E11.9 (one touch ultra 2) active Not Available Not Available No t Available cyclobenz aprine 5 mg tablet 12/19 completed Not Available Not Available Not Available nitrofura ntoin monohydra te/macroc rystals 100 mg capsule Take 1 capsule twice a day by oral route. 04/11 completed Not Available Not Available Not Available duloxetin e 20 mg capsule,d elayed release TAKE 1 CAPSULE BY MOUTH ONCE DAILY 10/07 completed Not Available Not Available Not Available duloxetin e 30 mg capsule,d elayed release TAKE 1 CAPSULE BY MOUTH ONCE DAILY 10/07 completed Not Available Not Available Not Available pregabali n 50 mg capsule TAKE 1 CAPSULE BY MOUTH THREE TIMES DAILY active Not Available Not Available No t Available Januvia 50 mg tablet TAKE 1 TABLET BY MOUTH ONCE DAILY active Not Available Not Available No t Available peg 3350 240 gram-elec trolytes 22.72 gram-6.72 g-5.84 g powdr for soln 07/24 completed Not Available Not Available Not Available IBgard 90 mg capsule,d elayed,ex tended release TAKE ONE CAPSULE BY MOUTH 30 MINUTES BEFORE OR AFTER FOOD WITH WATER. DO NOT EXCEED 8 CAPSULES PER DAY 07/24 completed Not Available Not Available Not Available Movantik 25 mg tablet TAKE 1 TABLET BY MOUTH IN THE MORNING FOR 30 DAYS 12/10 completed Not Available Not Available Not Available naloxone 4 mg/actuat ion nasal spray ADMINIST ER A SINGLE SPRAY IN ONE NOSTRIL UPON SIGNS OF OPIOID OVERDOSE . CALL 911. REPEAT AFTER 3 MINUTES IF NO RESPONSE . 10/07 completed Not Available Not Available Not Available Linzess 72 mcg capsule TAKE 1 CAPSULE BY MOUTH ONCE DAILY 12/10 completed Not Available Not Available Not Available OneTouch Ultra Blue Test Strip active Not Available Not Available Not Available OneTouch Ultra2 Meter active Not Available Not Available Not Available Vitals Date Recorded Body height Body temperature Heart rate Oxygen saturation Oxygen saturation in Arterial blood by Pulse oximetry Systolic blood pressure Diastolic blood pressure Provider Name and Address Organization Details Last Updated DateTime 3 177.8 cm 98.9 [degF] 90 /min 96 % 96 % 130 mm[Hg] 68 mm[Hg] Shahla Davis [place] [facility] 3 14:12:44 Date Recorded Body mass index (BMI) Body height Heart rate Body temperature Body weight Systolic blood pressure Diastolic blood pressure Provider Name and Address Organization Details Last Updated DateTime 2 51.8 kg/m2 177.8 cm 78 /min 97.4 [degF] 534231. 85 g 124 mm[Hg] 76 mm[Hg] Not Available [facility] 3 03:04:39 Date Recorded Body mass index (BMI) Body height Heart rate Body temperature Body weight Systolic blood pressure Diastolic blood pressure Provider Name and Address Organization Details Last Updated DateTime 2 51.8 kg/m2 177.8 cm 68 /min 97.4 [degF] 709431. 85 g 120 mm[Hg] 70 mm[Hg] Not Available [facility] 3 03:04:40 Date Recorded Body mass index (BMI) Body height Heart rate Body temperature Body weight Systolic blood pressure Diastolic blood pressure Provider Name and Address Organization Details Last Updated DateTime 2 51.8 kg/m2 177.8 cm 70 /min 98.7 [degF] 595585. 85 g 120 mm[Hg] 78 mm[Hg] Not Available [facility] 3 03:04:40 Date Recorded Body mass index (BMI) Body height Oxygen saturation Oxygen saturation in Arterial blood by Pulse oximetry Heart rate Body temperature Body weight Systolic blood pressure Diastolic blood pressure Provider Name and Address Organization Details Last Updated DateTime 3 51.7 kg/m2 177.8 cm 98 % 98 % 78 /min 97.2 [degF] 409714. 25 g 130 mm[Hg] 80 mm[Hg] Not Available [facility] 3 03:04:40 Social History Question Answer Notes LastModified by Organizat ion Details LastModified Time Tobacco Smoking Status Never Smoker TARUN [place] - Mando MD [employer] [facility] 07/13/2023 13:48:01 Do You Have An Advance Directive? No [id number] Information not available 01/19/2023 What Is Your Level Of Alcohol Consumption? None [id number] Information not available 01/19/2023 What Is Your Level Of Caffeine Consumption? Heavy MIGRATION.[id number] Information not available 01/19/2023 How Much Tobacco Do You Chew? None [id number] Information not available 01/19/2023 In The 14 Days Before Symptom Onset, Have You Had Close Contact With A Laboratory-confi rmed COVID-19 While That Case Was Ill? No Information not available 07/13/2023 In The 14 Days Before Symptom Onset, Have You Had Close Contact With A Person Who Is Under Investigation For COVID-19 While That Person Was Ill? No Information not available 07/13/2023 What Type Of Diet Are You Following? REGULAR [id number] Information not available 01/19/2023 Which Illicit Or Recreational Drugs Have You Used? None Information not available 07/13/2023 Do You Or Have You Ever Used E-cigarettes Or Vape? Never Used Electronic Cigarettes Information not available 07/13/2023 What Is The Highest Grade Or Level Of School You Have Completed Or The Highest Degree You Have Received? [id number] Information not available 07/13/2023 What Is Your Occupation? N/a Information not available 07/13/2023 Have There Been Any Changes To Your Family Or Social Situation? No Information not available 07/13/2023 Are There Any Guns Present In Your Home? No Information not available 07/13/2023 Do You Use Insect Repellent Routinely? No Information not available 07/13/2023 Where Do You Live? SingleLevelHouse Information not available 07/13/2023 Do You Have A Medical Power Of Taxonomist? No Information not available 07/13/2023 What Was The Date Of Your Most Recent Tobacco Screening? 2022 Information not available 07/13/2023 Do You Have Any Pets? Yes Information not available 07/13/2023 What Is Your Relationship Status? [id number] Information not available 01/19/2023 Do You Have Smoke And Carbon Monoxide Detectors In Your Home? Yes Information not available 07/13/2023 Are You Passively Exposed To Smoke? No Information not available 07/13/2023 Do You Or Have You Ever Used Smokeless Tobacco? Never Used Smokeless Tobacco [id number] Information not available 01/19/2023 Are There Any Smokers In Your House? No Information not available 07/13/2023 How Much Tobacco Do You Smoke? No MIGRATION.[id number] Information not available 01/19/2023 Do You Feel Stressed (tense, Restless, Nervous, Or Anxious, Or Unable To Sleep At Night)? [id number] Information not available 07/13/2023 Do You Use Sunscreen Routinely? No Information not available 07/13/2023 How Many Years Have You Smoked Tobacco? 0 Information not available 07/13/2023 Have You Recently Traveled Abroad? No Information not available 07/13/2023 Do You Have Any Dietary Restrictions? No Information not available 07/13/2023 Sex: Unknown Functional Status Question Answer Note LastModified by Organizat ion Details LastModified Time What is your exercise level? None [id number] Information not available 01/19/2023 Mental Status None recorded. Family History Relationship Description Onset Age of this Age Resolved Age Notes LastModified by Organization Details LastModified Time Maternal Grandmother Heart disease 83 [id number] Not available 01/19/2023 03:00:25 Maternal Grandmother Malignant tumor of esophagus and intest bozena cyahl Not available 07/13/2023 13:47:57 Father Malignant neoplastic disease cyahl Not available 2022 13:47:57 Father Urolithiasis cyahl Not availab le 07/13/2023 13:47:57 Father Heart disease [id number] Not available 01/19/2023 03:00:25 Father Diabetes mellitus [id number] Not available 01/19/2023 03:00:25 Sister Urolithiasis cyahl Not availab le 07/13/2023 13:47:57 Mother Hypertensive disorder [id number] Not available 01/19/2023 03:00:25 Medical History Condition Response NERVE DISEASE N BLINDNESS N CYSTITIS N RHEUMATIC FEVER N KIDNEY STONES Y BLADDER PROBLEMS N Enlarged Prostate N MRSA N OTHER # 1 N POLIO N LUNG DISEASE/DISORDER N HISTORY OF DRUG ABUSE N RADIATION / CHEMOTHERAPY N COPD N Other # 2 N BLOOD DISEASES N SURGERY N EAR OR HEARING PROBLEMS N MUMPS N SHINGLES N BOWEL PROBLEMS N DEPRESSION (INCLUDING POST ) Y STROKE/TIA N THYROID DISEASE N ULCERS N BENIGN PROSTATIC HYPERPLASIA N MEASLES N MYOCARDIAL INFARCTION N OBESITY N GERD/NAUSEA N ANEURYSM N URINARY/BLADDER/KIDNEY PROBLEMS N Increased Urination N INPATIENT PSYCH CARE N CORONARY ARTERY DISEASE (CAD) N ADDICTION CONCERNS N Impotence N ENDOMETRIOSIS N USE OF BLOOD THINNERS N SKIN PROBLEMS N EMPHYSEMA N GASTROINTESTINAL DISORDER N PERIPHERAL VASCULAR DISEASE N MUSCLE,JOINT OR BONE PROBLEMS N GASTROINTESTINAL BLEEDING N BLOOD CLOTS N Difficulty Urinating N ASTHMA N CATARACTS N ERECTILE DYSFUNCTION N VARICOSITIES N GI PROBLEMS N Low Testosterone N INFERTILITY N AIDS/HIV N LIVER DISEASE N MALE HYPOGONADISM N HYPERTENSION Y Deficiency N TOURETTE'S N ANXIETY DISORDER N BLOOD TRANSFUSION N ANEMIA/BLOOD DISORDER N CHRONIC EAR INFECTIONS N BRONCHITIS Y TUBERCULOSIS N GLAUCOMA N FOOT PROBLEM N DIVERTICULITIS N SLEEP APNEA N CHICKENPOX N INFECTIOUS DISEASE N PROSTATE N HEART ARRHYTHMIA N INSOMNIA N HIGH CHOLESTEROL / HYPERLIPIDEMIA N EYE PROBLEMS N HYPERTHYROIDISM N UTI N NEUROLOGICAL PROBLEMS N EDEMA N CHRONIC PAIN SYNDROME N HYPOTHYROIDISM N CONSTIPATION N CAROTID BLOCKAGE N BACK / NECK PROBLEMS N HAVE YOU BEEN HOSPITALIZED OR SEEN IN [facility] IN THE PAST YEAR ? N ATHEROSCLEROSIS N BREAST PROBLEMS N DIALYSIS N ECZEMA N OSTEOPOROSIS N ARTHRITIS N NO SIGNIFICANT PAST MEDICAL HISTORY N APPENDICITIS N DIABETES, TYPE Y BAD TEETH N PARKINSON N ENT N HEARTBURN / REFLUX N AUTISM SPECTRUM DISORDER (ASD) N HEPATITIS / LIVER DISEASE N PULMONARY DISEASE N GOUT N SLEEP DISORDER N ALZHEIMER'S DISEASE N Brain Problems N DEMENTIA N HERPES N SEIZURES/EPILEPSY N HEADACHES/MIGRAINES N VASCULAR DISEASE N PACEMAKER N HEART MURMUR N Blood Disorder N DIZZINESS N HEART DISEASE/HEART PROBLEMS N KIDNEY DISEASE N MULTIPLE SCLEROSIS N CANCER: SPECIFY N CARDIAC ARRHYTHMIA N ANESTHESIA COMPLICATIONS N ATRIAL FIBRILLATION N Gall Stones N PULMONARY EMBOLISM N AUTOIMMUNE DISEASE N Past Encounters Encounter ID Performer Location Encounter Start Date Encounter Closed Date Diagnosis/Indication Diagnosis SNOMED-CT Code Diagnosis ICD10 Code Diagnosis Note [id number] [facility] [address] [address] 02/25/2021 00:00:00 02/25/2021 22:13:47 [id number] [facility] [address] [address] 07/17/2021 00:00:00 07/17/2021 16:44:30 [id number] [facility] [address] [address] 09/18/2021 00:00:00 09/18/2021 17:13:39 [id number] [facility] Silvia lozano [address] [facility] , [facility] [place] [address] 12/31/2021 00:00:00 01/19/2022 21:25:18 [id number] [facility] [address] [address] 06/04/2022 00:00:00 06/19/2022 22:56:09 [id number] [facility] [address] [address] 2022 00:00:00 2022 22:14:40 [id number] [facility] [place] [address] [place] [address] 12/06/2022 00:00:00 12/06/2022 17:08:04 [id number] Rafy Constantino MD [facility] [address] [place] [address] 07/13/2023 13:47:38 07/13/2023 14:52:38 Type 2 diabetes mellitus 61670086 E11.9 Essential hypertension 89380811 I10 Body mass index 40+ - severely obese [id number] Z68.43 Health Concerns Section Related Observation LastModified by Organization Detai ls LastModified Time None Recorded Concern Status LastModified by Organization Details LastModified Time None Recorded Advance Directives Directive N: Payers Encounter Date Sequence Insurance Name Policy Number Policy Peralta Covered Member ID Peralta Member ID Guarantor Name 07/13/[address] [facility] [place] [facility] [id number] Nicanor Gayle [id number] Marito Alvares Notes Date Note Type Note Provider Name and Address Organization Details Recorded Time 07/13/2023 text/html diabetes sugars not being checked but no polyphagia polydipsia. Hypertension no headache no dizzy did morbid obesity they are contemplating maybe doing some bariatric surgery he has had some drainage from his umbilicus not painful at the moment and they been in touch with the surgeons Rafy Constantino MD [address], [facility] [address], [place], [address], [place] - [facility] 07/13/2023 21:44:00
--- OUTSIDE RECORDS SUMMARY | 2025-02-04 21:35 | XMS_ITS | Referral Summary ---
Author Organization [facility] Address [address] [place] [address] Care Team Providers Care Food Service Aide Name Role Phone Danna Abarca NP Primary Care Provider [phone] Encounters Date Type Department Care Team Description 01/30/2025 9:40 AM CDT Office Visit [facility] Gastroenterology [facility] 12th [place] [address] [place] [address] Evelyne Hawkins MD Abdominal cramps (Primary Dx); Morbid obesity with BMI of 50.0-59.9, adult (HCC) 12/21/2024 Orders Only [facility] Primary Care at [address] [place] [phone] aDnna Abarca NP Need for hepatitis B screening test (Primary Dx); Controlled type 2 diabetes mellitus without complication, without long-term current use of insulin (HCC); Screening for lipid disorders; Vitamin D deficiency; Screening for malignant neoplasm of prostate; Screening for thyroid disorder 12/21/2024 Telephone [facility] Primary Care at [address] [place] [phone] Danna Abarca NP Additional Services Or Orders from Last 3 Months Allergies Active Allergy Reactions Criticality Noted Date Comments Amoxicillin Unknown 05/27/2021 Amoxicillin-Pot Clavulanate Unknown 02/13/20 22 Medications traMADol (ULTRAM) 50 mg tabletIndicatio ns:Pain Take 1 tablet (50 mg total) by mouth 3 (three) times a day Active sucralfate (CARAFATE) 1 gram tabletIndicatio ns:Gastroesopha geal reflux disease without esophagitis Take 1 tablet (1 g total) by mouth 4 (four) times a day 120 tablet 03/05/20 19 Active Additional Information Patient taking differently:1 g oral4 times daily PRN, Indications: Heartburn, Informant: Self, Reported on 02/01/2024 Roc2LocTouch Ultra Blue Test Strip strip USE 1 STRIP TO CHECK GLUCOSE TWICE A WEEK 02/16/20 20 Active OneTouch Ultra2 Meter misc USE DIRECTED TWICE A WEEK 02/16/20 20 Active colestipoL (COLESTID) 1 gram tablet Take 2 tablets by mouth twice daily 120 tablet 10/05/20 23 Active semaglutide 0.25 mg or 0.5 mg (2 mg/3 mL) pen injector injectionIndica tions:Controlle d type 2 diabetes mellitus without complication, without long-term current use of insulin (HCC) Inject 0.5 mg under the skin every 7 days 3 mL 2 02/22/20 24 Active ergocalciferol (VITAMIN D) 50,000 unit capsule Take 1 capsule (50,000 Units total) by mouth once a week 12 capsule 1 02/23/20 24 025 Active atorvastatin (LIPITOR) 10 mg tablet Take 1 tablet (10 mg total) by mouth daily 90 tablet 3 02/23/20 24 025 Active glimepiride (AMARYL) 1 mg tablet Take 1 tablet (1 mg total) by mouth daily 90 tablet 3 05/08/20 24 025 Active famotidine (PEPCID) 40 mg tablet Take 1 tablet by mouth once daily 90 tablet 12/03/19 25 Active meloxicam (MOBIC) 15 mg tablet Take 1 tablet by mouth once daily 30 tablet 3 01/14/[address] (PROTONIX) 40 mg EC tabletIndicatio ns:Gastroesopha geal reflux disease, unspecified whether esophagitis present Take 1 tablet by mouth twice daily 60 tablet 01/23/20 25 Active dicyclomine (BENTYL) 10 mg capsuleIndicati ons:Abdominal cramps Take 1 capsule (10 mg total) by mouth 4 (four) times a day before meals and nightly 120 capsule 11 01/31/20 25 026 Active meloxicam (MOBIC) 15 mg tablet Take 1 tablet (15 mg total) by mouth daily 30 tablet 05/07/20 [address] (PROTONIX) 40 mg EC tabletIndicatio ns:Gastroesopha geal reflux disease, unspecified whether esophagitis present Take 1 tablet by mouth twice daily 60 tablet 12/28/19 25 025 Discontinued Active Problems Problem Noted Date Diagnosed Date Need for hepatitis B screening test 02/04/2025 Hyperlipidemia 02/04/2025 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 He is aware that first-line treatment involves NSAIDs. He will trial meloxicam 15 mg once a day. Continue all of his GI meds. Follow-up with GI as discussed Chronic UTI 02/22/2024 Assessment & Plan (02/22/2024 3:01 PM CDT): UA today is negative for UTI. We will refer to Urology as requested. Increase fluids. Follow-up if symptoms do not resolve Screening for malignant neoplasm of prostate 01/2024 Assessment & Plan (02/22/2024 3:03 PM CDT): PSA ordered Morbid obesity with BMI of 50.0-59.9, adult 01/2024 Assessment & Plan (05/07/2024 7:06 PM CDT): BMI 56.68 on 08/16/2023. Patient has not been able to weigh related to getting out of his wheelchair to the scale. Discussed ADA diet. He is currently unable to exercise. He has not started on the Ozempic for his diabetes mellitus and for weight loss. Assessment & Plan (02/22/2024 3:09 PM CDT): BMI 56.68 on 08/16/2023. Patient has not been able to weigh related to getting out of his wheelchair to the scale. Discussed ADA diet. He is currently unable to exercise. He is being started on Ozempic today for his diabetes mellitus and for weight loss. Umbilical hernia 09/05/2023 Diverticulitis 06/18/2022 Essential hypertension 02/12/2022 Assessment & Plan (05/07/2024 7:09 PM CDT): Stable BP 135/80. He has not currently taking any medication. He is aware that he needs to be taking an Kostas inhibitor or an ARB. Assessment & Plan (02/22/2024 3:04 PM CDT): At goal. BP 122/76. Patient was on losartan 50 mg daily but this was stopped related to good control of his blood pressure. I did discuss with him that we may resume a very small dose for renal protection if his lab results indicate need for it Assessment & Plan (02/12/2022 10:01 AM CDT): Found to be hypertensive in clinic today with systolics in the 140/90s. He mentions that he has to be on lisinopril 10 mg daily but discontinued this due to pruritus. We will start patient on losartan 50 mg daily. Will follow up on [facility]. Episodic tension-type headache, not intractable 06/22/2021 Assessment & Plan (06/22/2021 3:51 PM CDT): Patient has 3 week history of insidious onset bioccipital head pressure which fluctuates in intensity but has never gone. He has antecedent neck pain but it is not worsened associated with this. There is no features suggesting migraine and he has had no history of recent illnesses or fever related to development of head pain. Aside from his inability to ambulate given the chronic low back pain, his neurologic examination is otherwise currently unrevealing. There is no evidence of meningismus. I will obtain an MRI and MR angiogram brain and see him back thereafter. Pre-operative cardiovascular examination 019 Abnormal ECG 05/22/2019 Obstructive sleep apnea syndrome 05/07/2019 Assessment & Plan (02/22/2024 3:04 PM CDT): Wears his CPAP routinely Diarrhea 04/30/2019 Overview (04/30/2019): Added automatically from request for surgery [id number] History of malignant neuroendocrine tumor 2018 Overview (03/27/2019): Added automatically from request for surgery [id number] Obesity 02/25/2019 Assessment & Plan (02/12/2022 10:02 AM CDT): Patient is morbidly obese. He was extensively counseled on the importance of losing weight. Gastroesophageal reflux disease 10/08/2018 Assessment & Plan (05/07/2024 7:07 PM CDT): This is being managed by GI. He is currently on famotidine 40 mg daily, pantoprazole 40 mg daily and Carafate q.i.d.. He is asymptomatic at present Assessment & Plan (02/22/2024 3:03 PM CDT): This is managed per his prior authorization technician. Continue Protonix 20 mg daily and famotidine 40 mg daily. Hyperparathyroidism 05/15/2018 Assessment & Plan (02/22/2024 3:05 PM CDT): Patient denies that this is a condition of his. That was a presumption based on his vitamin-D level. Assessment & Plan (07/17/2019 3:57 PM CDT): Hyperparathyroidism. Most likely secondary due to vitamin D deficiency. 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 Assessment & Plan (05/16/2018 5:59 PM CDT): Hyperparathyroidism. Most likely secondary due to vitamin D deficiency. 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 Erectile dysfunction 03/29/2018 Assessment & Plan (07/17/2019 3:58 PM CDT): Most likely neurologic in origin but will check testosterone level. Incontinence 03/29/2018 Chest pain 09/21/2017 Assessment & Plan (02/12/2022 9:59 AM CDT): Patient has been worked up for chest pain past with a stress echocardiogram in 2017 that was of limited quality and report how stress-induced wall motion abnormalities. He mentions that since then he has continued to experience episodes of chest pressure usually company with palpitations. He has multiple cardiovascular risk factors including hypertension, morbid obesity and type 2 diabetes. Given symptoms he would warrant ischemic evaluation. Given body habitus best test for ischemic evaluation a PET perfusion study. We will order ammonia PET perfusion study. His multiple cardiovascular risk factors will continue to be addressed. Will order BMP, CBC, A1c and lipid panel Hemangioma of skin 09/05/2017 Keratosis pilaris 09/05/2017 Vitamin D deficiency 08/16/2017 Assessment & Plan (02/22/2024 3:00 PM CDT): Takes [id number] vitamin-D supplements. Vitamin-D level ordered Assessment & Plan (07/17/2019 3:59 PM CDT): Large dose requirement could be due to poor absorption with cholestyramine. Assessment & Plan (05/16/2018 5:58 PM CDT): Vitamin D deficiency. Has been taking 01745 units weekly. Will check vitamin D today. Adjustment disorder with depressed mood 08/10/20 17 Assessment & Plan (02/22/2024 3:06 PM CDT): Patient denies any depression or anxiety symptoms. He was on Cymbalta in the past, has been off of it for a very long time and does not feel he needs to resume it. Leukocytosis 06/14/2017 Controlled type 2 diabetes m ellitus without complication, without long-term current use of insulin Assessment & Plan (05/07/2024 7:11 PM CDT): Continue to limit carbohydrates in diet and take glimepiride 1 mg daily. He has to begin the Ozempic soon. Assessment & Plan (02/22/2024 3:02 PM CDT): Continue glimepiride 1 mg daily. Add Ozempic 0.25 mg per week x2 doses then increase to 0.5 mg subQ weekly. Monitor blood glucose as discussed. Continue to limit carbohydrates in diet. Check feet daily. Needs to schedule a dilated eye exam soon. Labs ordered Assessment & Plan (02/12/2022 10:01 AM CDT): Patient mentions that he was diagnosed with diabetes and is currently on glimepiride. We will follow his diabetes with A1c. Patient should also be on Lipitor. Resolved Problems Problem Noted Date Diagnosed Date Resolved Date Screening for lipid disorders 02/22/2024 02/04/2025 Assessment & Plan (02/22/2024 3:02 PM CDT): Lipid panel ordered. 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 02/13/2024 Overview (10/08/2018): 6 mm, s/p en bloc resection with negative margin 12/2017; well-differentiated, grade 1, mitotic rate less than 2 per high-power field, and Ki-67 shows proliferation index less than 1% Immunizations Immunization Administration Dates Next Due Influenza, Unspecified 12/31/2024(Deferr ed: Patient Refused),08/27/2024(Deferred: Patient Refused),09/04/2023(Deferred: Patient Refused),08/29/2023(Deferred: Patient Refused) Social History Tobacco Use Types Packs/Day Years Used Date Smoking Tobacco: Never Smokeless Tobacco: Never Tobacco Cessation:Counseling Given: Not Answered AUDIT-C Answer Date Recorded Q1: How often do you have a drink containing alcohol? Never 02/22/2024 Q2: How many drinks containi ng alcohol do you have on a typical day when you are drinking? Patient does not drink Q3: How often do you have si x or more drinks on one occasion? 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 Gender Identity Not on file Sexual Orientation Not on file Last Filed Vital Signs Vital Sign Reading Time Taken Comments Blood Pressure 167/79 01/30/2025 9:40 AM CDT Pulse 86 01/30/2025 9:40 AM CDT Temperature 37.2 C (98.9 F) 01/30/2025 9:40 AM CDT Respiratory Rate 16 08/16/2023 9:23 AM CDT Oxygen Saturation 98% 05/07/2024 11:05 AM CDT Inhaled Oxygen Concentration - - Weight 181.4 kg (400 lb) 01/30/2025 9:40 AM CDT Height 177.8 cm (5' 10 ) 01/30/2025 9:40 AM CDT Body Mass Index 57.39 01/30/2025 9:40 AM CDT Plan of Treatment Not on file Procedures Procedure Name Priority Date/Time Associated Diagnosis Comments ALBUMIN CREATININE RATIO, URINE Routine 02/22/2024 7:33 PM CDT Controlled type 2 diabetes mellitus without complication, without long-term current use of insulin (HCC) EGFR Routine 02/22/2024 7:30 PM CDT Controlled type 2 diabetes mellitus without complication, without long-term current use of insulin (HCC) HEMOGLOBIN A1C Routine 02/22/2024 7:30 PM CDT Controlled type 2 diabetes mellitus without complication, without long-term current use of insulin (HCC) LIPID PANEL Routine 02/22/2024 7:30 PM CDT Screening for lipid disorders HEPATITIS C ANTIBODY Routine 10/01/2022 12:49 PM GREEK PROFESSOR Encounter for screening for infections with predominantly sexual mode of transmission from Last 3 Months or Most Recently Relevant to Health Maintenance Results * Albumin Creatinine Ratio, Urine (02/22/2024 7:33 PM CDT) Albumin Ur 30.2 mg/L Comment: Interpretive Data No reference range established. Current interpretive data was last revised 2019. Creatinine Ur 402.7 mg/dL [facility] Comment: Interpretive Data No reference range established. Current interpretive data was last revised 2019. Albumin Creatinine Ratio, Ur 7 1 - 29 mg/g [facility] Urine 02/22/2024 7:33 PM CDT 02/22/2024 7:33 PM CDT us Danna Abarca NP LAB URINE ORDERABLES Final Re sult [facility] [id number] [address] Department [place] [address] * eGFR (02/22/2024 7:30 PM CDT) eGFR >90 >=60 mL/min/1. 73 m2 Comment: Interpretive Data Reference Interval Normal >/= 90 mL/min/1.73m2 Mildly decreased* 60 - 89 mL/min/1.73m2 Mildly to moderately decreased 45 - 59 mL/min/1.73m2 Moderately to severely decreased 30 - 44 mL/min/1.73m2 Severely decreased 15 - 29 mL/min/1.73m2 Kidney Failure < 15 mL/min/1.73m2 *Relative to young adult level Estimated glomerular filtration rate is determined by the 2020 CKD-EPI equation recommended by the National Kidney Foundation (A Unifying Approach to GFR Estimation: Recommendations of the NKF-ASK Task Force on Reassessing the Inclusion of Race in Diagnosing Kidney Disease, JASN 2020). The CKD-EPI equation should not be used for patients with unstable renal function and has not been validated in children and those over 70. Current interpretive data was last reviewed 2021. Blood 02/22/2024 7:30 PM CDT 02/22/2024 7:30 PM CDT us Danna Gonzalezg LAB BLOOD ORDERABLES Final Re sult Performing Organization Address [facility] de Phone Number [facility] [id number] [facility] [place] [address] * (ABNORMAL) Hemoglobin A1c (02/22/2024 7:30 PM CDT) Hgb A1C 7.0(H) 4.0 - 5.6 % Estimated Average Glucose 154 mg/dL [facility] Comment: The ADA recommends reporting an estimated Average Glucose (eAG) with all Hemoglobin A1c results using the equation derived from a study of 507 normal and diabetic adults. Minority populations were underrepresented and children were not included. (Diabetes Care 31:3731-2553, 2008). The eAG is not equivalent to a fasting glucose. Blood 02/22/2024 7:30 PM CDT 02/22/2024 7:54 PM CDT Danna Abarca LAB BLOOD ORDERABLES Final Re sult Performing Organization Address [facility] de Phone Number [facility] TORREZ [address] [facility] [place] [address] * (ABNORMAL) Lipid panel (02/22/2024 7:30 PM CDT) Pathologist [facility] Cholesterol 182 30 - 199 mg/dL Comment: Interpretive Data Ages < or = 19 years Acceptable: <170 mg/dL Borderline high: 170-199 mg/dL High: >or= 200 mg/dL Ages > or = 20 years Desirable: <200 mg/dL Borderline high: 200-239 mg/dL High: >or= 240 mg/dL Literature References: 1. Expert Panel on Integrated Guidelines for Cardiovascular Health and Risk Reduction in Children and Adolescents. Pediatrics 2011;128:S213 2. NCEP Expert Panel. Circulation 2004;110:227 Current Interpretive Data was last revised on 2018. Triglycerides 193(H) <=149 mg/dL [facility] Comment: Interpretive Data Ages < or = 9 years Acceptable: <75 mg/dL Borderline high: 75-99 mg/dL High: >or= 100 mg/dL Ages 10 to 20 years Acceptable: <90 mg/dL Borderline high: 90-129 mg/dL High: >or= 130 mg/dL Ages > or = 20 years Desirable: <150 mg/dL Borderline high: 150-199 mg/dL High: 200-499 mg/dL Very high: >or= 499 mg/dL Literature References: 1. Expert Panel on Integrated Guidelines for Cardiovascular Health and Risk Reduction in Children and Adolescents. Pediatrics 2011;128:S213 2. NCEP Expert Panel. Circulation 2003;110:227 Current Interpretive Data was last revised on 2018. HDL 30(L) >=40 mg/dL [facility] Comment: Interpretive Data Ages < or = 19 years Acceptable: >45 mg/dL Borderline low: 40-45 mg/dL Low: <40 mg/dL Ages > or = 20 years Desirable: >or= 60 mg/dL Low: <40 mg/dL Literature References: 1. Expert Panel on Integrated Guidelines for Cardiovascular Health and Risk Reduction in Children and Adolescents. Pediatrics 2011;128:S213 2. NCEP Expert Panel. Circulation 2003;110:227 Current Interpretive Data was last revised on 2018. LDL, calculated 113 <=129 mg/dL [facility] Comment: Interpretive Data Ages < or = 19 years Acceptable: <110 mg/dL Borderline high: 110-129 mg/dL High: >or= 130 mg/dL Ages > or = 20 years Optimal: <100 mg/dL Near optimal: 100-129 mg/dL Borderline high: 130-159 mg/dL High: >160 mg/dL Literature References: 1. Expert Panel on Integrated Guidelines for Cardiovascular Health and Risk Reduction in Children and Adolescents. Pediatrics 2011;128:S213 2. NCEP Expert Panel. Circulation 2004;110:227 Current Interpretive Data was last revised on 2018. Non-HDL Cholesterol 152 mg/dL [facility] Comment: Interpretive Data Ages < or = 19 years Acceptable: <120 mg/dL Borderline high: 120-144 mg/dL High: >145 mg/dL Ages > or = 20 years When triglycerides are >200 mg/dL, Non-HDL cholesterol is a secondary target of therapy with treatment goals that are 30 mg/dL greater than the LDL cholesterol target. Literature References: 1. Expert Panel on Integrated Guidelines for Cardiovascular Health and Risk Reduction in Children and Adolescents. Pediatrics 2011;128:S213 2. NCEP Expert Panel. Circulation 2004;110:227 Current Interpretive Data was last revised on 2018. Chol/HDL ratio 6 [facility] SHAN Blood 02/22/2024 7:30 PM CDT 02/22/2024 7:30 PM CDT us Danna Abarca [employer]ER LAB BLOOD ORDERABLES Final Re sult [facility] [address] Department [place] [address] * Hepatitis C antibody (10/01/2022 12:49 PM GREEK PROFESSOR) Hep C Ab Nonreactive Nonreactive [facility] Comment:Antibodies to HCV no t detected. Does NOT exclude the possibility of recent exposure to HCV. Current interpretive data was last revised on 22 Blood 10/01/2022 12:4 9 PM GREEK PROFESSOR 10/01/2022 4:18 PM GREEK PROFESSOR us Mali Lenz MD LAB MICROBIOLOGY - G ENERAL ORDERABLES Final Result Performing Organization Address City/[facility]/ZIP Co de Phone Number [facility] Department [place] [address] from Last 3 Months or Most Recently Relevant to Health Maintenance Insurance [employer] [address] EMPLOYEES Advance Directives For more information, please contact: [phone] * Full Code (Latest Code Status on File) Date Activated Date Inactivated Comments 06/14/2019 7:41 AM 06/14/2019 1:47 PM Care Teams Food Service Aide Relationship Specialty Start Date End Date Danna Abarca NP [address] [address] PCP - General Community Placement Worker 02/22/24
--- OUTSIDE RECORDS SUMMARY | 2025-02-04 21:36 | XMS_ITS | Clinical Summary ---
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 Gender Identity Not on file Sexual Orientation Not on file Plan of Treatment Health Maintenance Due Date Last Done Comments Hepatitis C Virus (HCV) Screening 1981 TdaP Immunization 1981 Hepatitis B Immunization (1 of 3 - 19+ 3-dose series) 2000 Influenza Immunization (#1) 2024 SARS-COV-2 Immunization ( - 2023- season) 2024 Respiratory Syncytial Virus (RSV) Immunization (Adult) (1 - 1-dose 75+ series) 2056 Meningococcal Immunization (ACWY) Aged Out No longer eligible based on patient's age to complete this topic Pneumococcal Immunization Combined Aged Out No longer eligible based on patient's age to complete this topic Rotavirus Immunization Aged Out No lo nger eligible based on patient's age to complete this topic
--- OUTSIDE RECORDS SUMMARY | 2025-02-04 21:36 | XMS_ITS | Clinical Summary ---
Author Organization [facility] Address [address] [place] [address] Care Team Providers Care It Operations Manager Name Role Phone Danna Abarca NP Primary Care Provider [phone] Allergies Active Allergy Reactions Criticality Noted Date [...] Indications: Heartburn, Informant: Self, Reported on 02/01/2024 OneTouch Ultra Blue Test Strip strip USE 1 [...] 50 mg daily. Will follow up on BMP. Episodic tension-type headache, not intractable 06/22/2021 Assessment [...] (04/30/2019): Added automatically from request for surgery [id number] History of malignant neuroendocrine tumor 2018 Overview (03/27/2019): Added automatically from request for surgery [id number] Obesity 02/25/2019 Assessment & Plan (02/12/2022 10:02 [...] PM CDT): This is managed per his set up worker. Continue Protonix 20 mg daily and famotidine [...] & Plan (02/22/2024 3:00 PM CDT): Takes [id number]-[id number] vitamin-D supplements. Vitamin-D level ordered Assessment & Plan (07/17/2019 3:59 PM CDT): Large dose requirement could be due to poor absorption with cholestyramine. Assessment & Plan (05/16/2018 5:58 PM CDT): Vitamin D deficiency. Has been taking 04773 units weekly. Will check vitamin D today. Adjustment disorder with depressed mood 08/10/20 Assessment & Plan (02/22/2024 3:06 PM CDT): Patient denies any depression or anxiety symptoms. He was on Cymbalta in the past, has been off of it for a very long time and does not feel he needs to resume it. 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 12th [place] [address] [place] [address] Evelyne Hawkins MD Abdominal cramps (Primary Dx); Morbid obesity with BMI of 50.0-59.9, adult (HCC) 12/21/2024 Orders Only [facility] Primary Care at [address] [address] Danna Abarca NP Need for hepatitis B screening test (Primary Dx); Controlled type 2 diabetes mellitus without complication, without long-term current use of insulin (HCC); Screening for lipid disorders; Vitamin D deficiency; Screening for malignant neoplasm of prostate; Screening for thyroid disorder 12/21/2024 Telephone [facility] Primary Care at [address] [address] Danna Abarca NP Additional Services Or Orders from Last 3 Months Immunizations Immunization Administration Dates Next Due Influenza, Unspecified 12/31/2024(Deferr ed: Patient Refused),08/27/2024(Deferred: Patient Refused),09/04/2023(Deferred: Patient Refused),08/29/2023(Deferred: Patient Refused) Surgical History Surgery Date Site/Laterality Comments CHOLECYSTECTOMY 11/21/2014 - 11/20/2015 OTHER SURGICAL HISTORY Rectal ultrasound, endoscopic rectal exam, excision of rectal mass, , OTHER SURGICAL HISTORY 01/06/2018 Lower EUS COLONOSCOPY 12/02/2017 OTHER SURGICAL HISTORY 12/02/2017 Upper GI Endoscopy OTHER SURGICAL HISTORY 11/21/2017 - 11/20/2018 Rectal US and Neuroendocrine rectal tumor excision ORAL SURGERY Medical History Medical History Date Comments Obesity Hypertension MEHNAZ (obstructive sleep apnea) Depression GERD (gastroesophageal reflu x disease) Spinal stenosis Benign neuroendocrine tumor of rectum (HCC) 6 mm, s/p en bloc resection with negative margin 12/2017; well-differentiated, grade 1, mitotic rate less than 2 per high-power field, and Ki-67 shows proliferation index less than 1% Diverticulosis Sigmoid colon Chronic pain Back pain Morbid obesity (HCC) Constipation Epididymitis Diverticulitis 03/2019 Currently takin antibiotic tx: Cipro and Flagyl Other complications of anest hesia, sequela 01/06/2018 Rectal ultrasound, endoscopi c rectal exam, excision of rectal mass (BJ). Pt reports generalized muscle stiffness and pain for 2.5-3 days, Pt given Succinylcholine during procedure. No problems with Anesthesia given since. HTN (hypertension) Vitamin D deficiency Prediabetes 2018 Spinal stenosis Diabetes (HCC) Constipation Anxiety 2016 Kidney stone 2017 Family History Medical History Relation Name Comments Alcohol abuse Father Timoteo Cancer Father Timoteo Diabetes Father Timoteo Family history of diabetes mellitus - (Added by TW Conv) Heart attack Father Timoteo Family history of myocardial infarction - (Added by TW Conv) Heart disease Father Timoteo Lung cancer Father Timoteo Family history of lung cancer - (Added by TW Conv)/Family history of lung cancer - (Added by TW Conv) Cancer Maternal Grandmother Rosie Esophageal cancer Maternal Grandmother Rosie dewey history of malignant neoplasm of esophagus - (Added by TW Conv) Heart failure Maternal Grandmother Rosie Family history of congestive heart failure - (Added by TW Conv) Arthritis Mother Lottie Hypertension Mother Lottie Family history of hypertension - (Added by TW Conv)/Family history of hypertension - (Added by TW Conv) Osteoporosis Mother Lottie Family history of osteoporosis - (Added by TW Conv) Autism Sister 1 Family history of autism - (Added by TW Conv) No Known Problems Sister 2 Relation Name Status Comments Father Timoteo Maternal Grandmother Rosie (Age 84) CH F Mother Lottie Alive Sister 1 Alive Sister 2 Alive Social History Tobacco Use Types Packs/Day Years [...] on file Legal Sex 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 Gender Identity Not on file Sexual Orientation Not on file Obstetrics History Last Filed Vital Signs Vital Sign Reading [...] 01/30/2025 9:40 AM CDT Plan of Treatment Health Maintenance Due Date Last Done Comments Dilated Eye Exam 1981 DTaP/Tdap/Td Vaccine (1 - Tdap) 1992 Hepatitis B Screening 1999 Regular Well Visit/Exam 18-64 1999 Hemoglobin A1C 08/23/2024 02/22/2024, 01/20, 07/21/2019, Additional history exists Albumin Creatinine Ratio, Urine 02/21/2025 02/22/2024 Depression Screening 02/21/2025 02/22/2024 Foot Exam 02/21/2025 02/22/2024 Lipid Panel 02/21/2025 02/22/2024, 01/20, 05/04/2017 eGFR 02/21/2025 02/22/2024, 01/20, 04/25/2017 Influenza Vaccine (#1) 2025 Postp oned from 07/22/2024 (Patient declined, but will receive in the future) Pneumococcal vaccine <65 (1 of 2 - PCV) 06/13/2025 Postponed from 2000 (Patient declined, but will receive in the future) Hepatitis C Screening Completed 10/01/2022 HPV Vaccines Aged Out No longer eligi ble based on patient's age to complete this topic Varicella Vaccines Discontinued Procedures Procedure Name Priority Date/Time Associated Diagnosis [...] HEPATITIS C ANTIBODY Routine 10/01/2022 12:49 PM BOX MAKER PAPERBOARD Encounter for screening for infections with predominantly sexual mode of transmission from Last 3 Months or Most Recently Relevant to Health Maintenance Results * Albumin Creatinine Ratio, Urine (02/22/2024 7:33 PM CDT) Albumin Ur 30.2 mg/L Comment: Interpretive Data No reference range established. Current interpretive data was last revised 2019. Creatinine Ur 402.7 mg/dL [facility] Comment: Interpretive Data No reference range established. Current interpretive data was last revised 2019. Albumin Creatinine Ratio, Ur 7 1 - 29 mg/g [facility] Urine 02/22/2024 7:33 PM CDT 02/22/2024 7:33 PM CDT us Danna Abarca NP LAB URINE ORDERABLES Final Re sult [facility] [address] Department [place] [address] * eGFR (02/22/2024 7:30 PM CDT) eGFR [...] 02/22/2024 7:30 PM CDT us Danna Abarca NP LAB BLOOD ORDERABLES Final Re sult [facility] [address] Department [place] [address] * (ABNORMAL) Hemoglobin A1c (02/22/2024 7:30 PM CDT) Hgb A1C 7.0(H) 4.0 - 5.6 % Estimated Average Glucose 154 mg/dL [facility] Comment: The ADA recommends reporting an estimated Average Glucose (eAG) with all Hemoglobin A1c results using the equation derived from a study of 507 normal and diabetic adults. Minority populations were underrepresented and children were not included. (Diabetes Care 31:4367-0575, 2008). The eAG is not equivalent to a fasting glucose. Blood 02/22/2024 7:30 PM CDT 02/22/2024 7:54 PM CDT us Danna Abarca NP LAB BLOOD ORDERABLES Final Re sult [facility] [address] Department [place] [address] * (ABNORMAL) Lipid panel (02/22/2024 7:30 PM CDT) Cholesterol 182 30 - 199 mg/dL Comment: [...] on 2018. HDL 30(L) >=40 mg/dL [facility] Comment: Interpretive Data Ages [...] 2018. LDL, calculated 113 <=129 mg/dL [facility] Comment: Interpretive Data Ages [...] on 2018. Non-HDL Cholesterol 152 mg/dL [facility] Comment: Interpretive Data Ages [...] revised on 2018. Chol/HDL ratio 6 [facility] Blood 02/22/2024 7:30 PM CDT 02/22/2024 7:30 PM CDT us Danna Abarca NP LAB BLOOD ORDERABLES Final Re sult [facility] [address] Department [place] [address] * Hepatitis C antibody (10/01/2022 12:49 PM BOX MAKER PAPERBOARD) Hep C Ab Nonreactive Nonreactive [facility] Comment:Antibodies to HCV no t detected. Does NOT exclude the possibility of recent exposure to HCV. Current interpretive data was last revised on 22 Blood 10/01/2022 12:4 9 PM BOX MAKER PAPERBOARD 10/01/2022 4:18 PM BOX MAKER PAPERBOARD us Mali Lenz MD LAB MICROBIOLOGY - G ENERAL ORDERABLES Final Result [facility] Department [place] [address] from Last 3 Months or Most Recently Relevant to Health Maintenance Insurance [facility] [employer] [facility] CHOICE PLUS [employer] [facility] [employer]ES [employer] [employer] Advance Directives For more information, please contact: [phone] * Full Code (Latest Code Status on File) Date Activated Date Inactivated Comments 06/14/2019 7:41 AM 06/14/2019 1:47 PM Care Teams It Operations Manager Relationship Specialty Start Date End Date Danna Abarca NP [address] [facility] [address] [place] [address] PCP - General Mixer Tender 02/22/24
[2025-02-04 22:03] VITALS: BP 150/109; PULSE 129; RESP 26; TEMP 36.3; O2SAT 100
--- OUTSIDE RECORDS SUMMARY | 2025-02-05 01:51 | XMS_ITS | Referral Summary ---
Author Organization [facility] Address [address] [place] [address] Care Team Providers Care Lean Manager Name Role Phone Danna Abarca NP Primary Care Provider [phone] Encounters Date Type Department Care Team Description 01/30/2025 9:40 AM CDT Office Visit [facility] Gastroenterology [facility] 12th [place] [address] [place] [address] Evelyne Hawkins MD Abdominal cramps (Primary Dx); Morbid obesity with BMI of 50.0-59.9, adult (HCC) 12/21/2024 Orders Only [facility] Primary Care at [address] [place] [address] Danna Abarca NP Need for hepatitis B screening test (Primary Dx); Controlled type 2 diabetes mellitus without complication, without long-term current use of insulin (HCC); Screening for lipid disorders; Vitamin D deficiency; Screening for malignant neoplasm of prostate; Screening for thyroid disorder 12/21/2024 Telephone [facility] Primary Care at [address] [place] [address] Danna Abarca NP Additional Services Or [...] Indications: Heartburn, Informant: Self, Reported on 02/01/2024 [employer] Ultra Blue Test Strip strip USE 1 [...] 50 mg daily. Will follow up on [facility]. Episodic tension-type headache, not intractable 06/22/2021 Assessment [...] (04/30/2019): Added automatically from request for surgery [id number] History of malignant neuroendocrine tumor 2018 Overview (03/27/2019): Added automatically from request for surgery [id number] Obesity 02/25/2019 Assessment & Plan (02/12/2022 10:02 [...] PM CDT): This is managed per his piercer. Continue Protonix 20 mg daily and famotidine [...] & Plan (02/22/2024 3:00 PM CDT): Takes [id number] vitamin-D supplements. Vitamin-D level ordered Assessment & Plan (07/17/2019 3:59 PM CDT): Large dose requirement could be due to poor absorption with cholestyramine. Assessment & Plan (05/16/2018 5:58 PM CDT): Vitamin D deficiency. Has been taking 16718 units weekly. Will check vitamin D today. 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 Current interpretive data was last revised 2019. Creatinine Ur 402.7 mg/dL [facility] Comment: Interpretive Data No reference range established. Current interpretive data was last revised 2019. Albumin Creatinine Ratio, Ur 7 1 - 29 mg/g [facility] Urine 02/22/2024 7:33 PM CDT 02/22/2024 7:33 PM CDT us Danna Abarca NP LAB URINE ORDERABLES Final Re sult [facility] [address] Department [place] [address] * eGFR (02/22/2024 7:30 PM CDT) eGFR [...] ORDERABLES Final Re sult Performing Organization Address [facility] de Phone Number [facility] [address] [facility] [place] [address] * (ABNORMAL) Hemoglobin A1c (02/22/2024 7:30 PM CDT) Hgb A1C 7.0(H) 4.0 - 5.6 % Estimated Average Glucose 154 mg/dL [facility] Comment: The ADA recommends reporting an estimated Average Glucose (eAG) with all Hemoglobin A1c results using the equation derived from a study of 507 normal and diabetic adults. Minority populations were underrepresented and children were not included. (Diabetes Care 31:6195-4541, 2008). The eAG is not equivalent to a fasting glucose. Blood 02/22/2024 7:30 PM CDT 02/22/2024 7:54 PM CDT Danna Abarca LAB BLOOD ORDERABLES Final Re sult Performing Organization Address [facility] de Phone Number [facility] [address] [facility] [place] [address] * (ABNORMAL) Lipid panel (02/22/2024 7:30 PM CDT) Pathologist [facility] Cholesterol 182 30 - 199 mg/dL Comment: [...] 02/22/2024 7:30 PM CDT us Danna Abarca DELIVERY PERSON LAB BLOOD ORDERABLES Final Re sult [facility] [address] Department [place] [address] * Hepatitis C antibody (10/01/2022 12:49 PM CLIENT RENEWAL SPECIALIST) Hep C Ab Nonreactive Nonreactive [facility] Comment:Antibodies to HCV no t detected. Does NOT exclude the possibility of recent exposure to HCV. Current interpretive data was last revised on 22 Blood 10/01/2022 12:4 9 PM CLIENT RENEWAL SPECIALIST 10/01/2022 4:18 PM CLIENT RENEWAL SPECIALIST us Mali Lenz MD LAB MICROBIOLOGY - G ENERAL ORDERABLES Final Result Performing Organization Address City/[facility]/ZIP Co de Phone Number [facility] One [facility] Department [place] [address] from Last 3 Months or Most Recently Relevant to Health Maintenance Insurance [facility] EMPLOYEES [facility] [employer] [employer] Address: [address] [address] [place] [address] [employer] [employer] Address: [address] EMPLOYEES [employer] [employer] [employer] Address: [address] [address] [place] [address] [facility] [employer] Address: [place] [address] [facility] [employer] Address: [place] [address] [facility] [employer] Address: [address] [address] [place] [address] Advance Directives For more information, please contact: [phone] * Full Code (Latest Code Status on File) Date Activated Date Inactivated Comments 06/14/2019 7:41 AM 06/14/2019 1:47 PM Care Teams Lean Manager Relationship Specialty Start Date End Date Danna Abarca NP [address] [address] PCP - General Senior Game Developer 02/22/24
--- OUTSIDE RECORDS SUMMARY | 2025-02-05 01:51 | XMS_ITS | Clinical Summary ---
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
--- OUTSIDE RECORDS SUMMARY | 2025-02-05 01:51 | XMS_ITS | Clinical Summary ---
Author Organization [facility] Address [address] [place] [address] Care Team Providers Care Certified Physical Therapist Assistant Name Role Phone Danna Abarca NP Primary Care Provider [phone] Allergies Active Allergy Reactions Criticality Noted Date [...] (04/30/2019): Added automatically from request for surgery [id number] History of malignant neuroendocrine tumor 2018 Overview (03/27/2019): Added automatically from request for surgery [id number] Obesity 02/25/2019 Assessment & Plan (02/12/2022 10:02 [...] PM CDT): This is managed per his cns. Continue Protonix 20 mg daily and famotidine [...] & Plan (02/22/2024 3:00 PM CDT): Takes [id number]-olo-ivycysj vitamin-D supplements. Vitamin-D level ordered Assessment & Plan (07/17/2019 3:59 PM CDT): Large dose requirement could be due to poor absorption with cholestyramine. Assessment & Plan (05/16/2018 5:58 PM CDT): Vitamin D deficiency. Has been taking 62647 units weekly. Will check vitamin D today. 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 12th [place] [address] [place] [address] Evelyne Hawkins MD Abdominal cramps (Primary Dx); Morbid obesity with BMI of 50.0-59.9, adult (HCC) 12/21/2024 Orders Only [facility] Primary Care at [address] [phone] Danna Abarca NP Need for hepatitis B screening test (Primary Dx); Controlled type 2 diabetes mellitus without complication, without long-term current use of insulin (HCC); Screening for lipid disorders; Vitamin D deficiency; Screening for malignant neoplasm of prostate; Screening for thyroid disorder 12/21/2024 Telephone [facility] Primary Care at [address] [address] Danna Abarca NP Additional Services [...] on file Legal Sex Male 9:17 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 Gender Identity Not on file Sexual Orientation [...] HEPATITIS C ANTIBODY Routine 10/01/2022 12:49 PM TAPE CONTROL SKIN OR SPAR MILL OPERATOR Encounter for screening for infections with predominantly [...] URINE ORDERABLES Final Re sult [facility] [address] Department [place] [address] * eGFR (02/22/2024 7:30 PM CDT) eGFR [...] BLOOD ORDERABLES Final Re sult [facility] [address] Department [place] [address] * (ABNORMAL) Hemoglobin A1c (02/22/2024 7:30 PM CDT) Hgb A1C 7.0(H) 4.0 - 5.6 % Estimated Average Glucose 154 mg/dL [facility] Comment: The ADA recommends reporting an estimated Average Glucose (eAG) with all Hemoglobin A1c results using the equation derived from a study of 507 normal and diabetic adults. Minority populations were underrepresented and children were not included. (Diabetes Care 31:7513-9191, 2008). The eAG is not equivalent to a fasting glucose. Blood 02/22/2024 7:30 PM CDT 02/22/2024 7:54 PM CDT us Danna Abarca NP LAB BLOOD ORDERABLES Final Re sult [facility] [address] Department [place] [address] * (ABNORMAL) Lipid panel (02/22/2024 7:30 PM [...] BLOOD ORDERABLES Final Re sult [facility] [address] [place] [address] * Hepatitis C antibody (10/01/2022 12:49 PM TAPE CONTROL SKIN OR SPAR MILL OPERATOR) Hep C Ab Nonreactive Nonreactive [facility] Comment:Antibodies to HCV no t detected. Does NOT exclude the possibility of recent exposure to HCV. Current interpretive data was last revised on 22 Blood 10/01/2022 12:4 9 PM TAPE CONTROL SKIN OR SPAR MILL OPERATOR 10/01/2022 4:18 PM TAPE CONTROL SKIN OR SPAR MILL OPERATOR us Mali Lnez MD LAB MICROBIOLOGY - G ENERAL ORDERABLES Final Result [facility] [place] [address] from Last 3 Months or Most Recently Relevant to Health Maintenance Insurance [employer] PLUS [facility] EM[employer]OYEES [employer] [employer]ES Advance Directives For more information, please contact: [phone] * Full Code (Latest Code Status on File) Date Activated Date Inactivated Comments 06/14/2019 7:41 AM 06/14/2019 1:47 PM Care Teams Certified Physical Therapist Assistant Relationship Specialty Start Date End Date Danna Abarca NP [address] [facility] [address] [place] [address] PCP - General Administrative Underwriter 02/22/24
[2025-02-05] MEDS: SODIUM CHLORIDE 0.9% IV 1,000 ML 999 ML IV CONT ×2 (02:04→03:23)
[2025-02-05 02:29] LABS: Basophils Absolute Auto 0.1 K/mm3 (0.0-0.1); Basophils Percent Auto 0.4 % (0.2-1.2); Eosinophils Absolute Auto 0.3 K/mm3 (0-0.3); Eosinophils Percent Auto 2.4 % (0-4.4); Hematocrit 46.5 % (42.0-52.0); Hemoglobin 14.9 g/dL (14.0-18.0); Immature Granulocyte Absolute 0.14 K/mm3 (0.00-0.031); Lymphocytes Absolute Auto 3.45 K/mm3 (0.9-3.2); Lymphocytes Percent Auto 24.6 % (18.3-44.2); Mean Corpuscular Hemoglobin 27.5 pg (26-34); Mean Platelet Volume 9.9 fl (7.4-10.4); Monocytes Absolute Auto 0.7 K/mm3 (0.1-0.6); Monocytes Percent Auto 5.2 % (2.6-8.5); Neutrophils Absolute Auto 9.3 K/mm3 (1.3-6.7); Neutrophils Percent Auto 66.4 % (45.5-73.1); Platelet Count Result 504 k/mm3 (150-375); Red Blood Count 5.41 M/mm3 (4.6-6.20); White Blood Count 14.1 K/mm3 (4.5-10.0)
[2025-02-05 02:39] LABS: Add Urine Microscopic? NO; Appearance Urine Clear (Clear); Bilirubin Urine Negative (Negative); Blood Urine Negative (Negative); Color Urine Yellow (Yellow); Glucose Urine UA Negative (Negative); Ketones Urine 1+ mg/dL (Negative); Leukocyte Esterase Ur Negative LEU/UL (Negative); Nitrate Urine Negative (Negative); Protein Urine Negative (Negative); Specific Grav Ur 1.012 (1.001-1.035)
[2025-02-05 02:43] LABS: Alanine Aminotransferase 24 U/L (6-50); Albumin Level 4.1 g/dL (3.5-5.1); Alkaline Phosphatase 136 U/L (38-126); Anion Gap 11 mmol/L (4-12); Aspartate Amino Transferase 28 U/L (17-59); Blood Urea Nitrogen 8 mg/dL (9-20); Carbon Dioxide 29 mmol/L (22-30); Chloride 95 mmol/L (98-107); Estimated CRCL calculation 141 ml/min; Estimated Glomerular Filt Rate > 60; Glucose 148 mg/dL (65-110); Lipase 37 U/L (23-300); Magnesium 1.9 mg/dL (1.6-2.3); Potassium 3.4 mmol/L (3.4-5.0); Sodium 135 mmol/L (137-145)
[2025-02-05 02:44] LABS: Lactic Acid Reflex 1.2 mmol/L (0.7-2.0)
[2025-02-05 02:59] LABS: Procalcitonin 0.1 ng/mL
[2025-02-05 03:11] LABS: Influenza A QL RT-PCR Negative (Negative); Influenza B QL RT-PCR Negative (Negative); RSV RNA, RT-PCR Negative (Negative); SARS-CoV-2 RNA PCR Negative (Negative)
--- NOTE | 2025-02-05 03:18 | ED_ITS ---
HPI - General Adult General Chief complaint: Urogenital-Male Stated complaint: abd pain, swollen/itchy/burning eye Time Seen by Provider: 02/05/25 01:37 History of Present Illness HPI narrative: Patient 44-year-old gentleman who presents emergency department with chief complaint of abdominal pain patient reports that he has had itching over his body and also has reported that he has had some crusting on his scrotum patient also reports that he had pain in the left lower quadrant patient reports he has had prior history of diverticulitis in the past Related Data Home Medications ?Medication ?Instructions ?Recorded ?Confirmed ?Last Taken ?Type colestipol 1 gram tablet 1 g PO ONCE 09/16/23 09/19/23 Unknown History famotidine 40 mg tablet 40 mg PO DAILY 09/16/23 09/19/23 Unknown History glimepiride 1 mg tablet 1 mg PO QAM 09/16/23 09/19/23 Unknown History pantoprazole 20 mg tablet,delayed 20 mg PO QAM 09/16/23 09/19/23 Unknown History release tramadol 50 mg tablet 50 mg PO Q6H PRN 09/16/23 09/19/23 Unknown History Allergies Allergy/AdvReac Type Severity Reaction Status Date / Time amoxicillin Allergy Unknown Unknown Verified 09/16/23 08:51 Review of Systems 2 Review of Systems: A 10 system review of systems was completed on the patient and is negative except for what is stated in the HPI. Nursing and ancillary documentation was reviewed. PMFSH Past Medical History Medical History Hyperlipidemia Hypertension GERD (gastroesophageal reflux disease) Kidney stones Depression Surgical History Surgical History History of rectal surgery removal of neuroendocrine tumor in 2018 at [facility] Hx of cholecystectomy Family History Family History Other Cancer Diabetes mellitus Hypertension Social History Social History Smoking status: Never smoker Alcohol intake: never Additional occupation/education comments: disabled Exam 2 Narrative: GENERAL: Well-appearing, well-nourished, and in no acute distress. HEAD: Normocephalic, atraumatic. EYES: PERRLA and EOMI. ENT: Nares clear, no rhinorrhea or epistaxis. Mucous membranes moist. NECK: Supple. CHEST: Clear to auscultation. No respiratory distress. HEART: Regular rate and rhythm. No murmur heard. Normal peripheral pulses. ABDOMEN: Soft, tenderness to palpation left lower quadrant, nondistended, normal active bowel sounds. : No crepitance scrotum is nontender no erythema EXTREMITIES: Normal range of motion. No edema. SKIN: Warm, dry, no rash. NEURO: No focal deficits. Alert and oriented x3. PSYCH: Normal mood and affect. Course Vital Signs Vital signs: Vital Signs Temperature 36.3 C L 02/04/25 22:03 Pulse Rate 129 H 02/04/25 22:03 Respiratory Rate 26 H 02/04/25 22:03 Blood Pressure 150/109 H 02/04/25 22:03 Pulse Oximetry 100 02/04/25 22:03 Oxygen Delivery Room Air 02/04/25 22:03 Temperature 36.3 C L 02/04/25 22:03 Pulse Rate 105 H 02/05/25 04:00 Respiratory Rate 17 02/05/25 04:00 Blood Pressure 146/83 H 02/05/25 04:00 Pulse Oximetry 96 02/05/25 04:00 Oxygen Delivery Room Air 02/04/25 22:03 Medical Decision Making [facility] Narrative Medical decision making narrative: Differential diagnosis includes injury abdominal infection, diverticulitis, colitis, UTI, pyelonephritis Laboratory studies were obtained on the patient which showed a white count of 14 electrolytes are within normal limits lactic acid was 1.2 procalcitonin was 0.1 urinalysis showed no evidence UTI CT scan of the abdomen pelvis showed evidence of acute diverticulitis Patient was started on Cipro and Flagyl and will be instructed to follow-up with his primary care provider Vital Signs Vital Signs: Vital Signs Temperature 36.3 C L 02/04/25 22:03 Pulse Rate 129 H 02/04/25 22:03 Respiratory Rate 26 H 02/04/25 22:03 Blood Pressure 150/109 H 02/04/25 22:03 Pulse Oximetry 100 02/04/25 22:03 Oxygen Delivery Room Air 02/04/25 22:03 Temperature 36.3 C L 02/04/25 22:03 Pulse Rate 105 H 03/18/25 04:00 Respiratory Rate 17 02/05/25 04:00 Blood Pressure 146/83 H 02/05/25 04:00 Pulse Oximetry 96 02/05/25 04:00 Oxygen Delivery Room Air 02/04/25 22:03 Lab Data 02/05/25 02:07 02/05/25 02:07 Labs: Lab Results 02/05/25 Range/Units 02:07 WBC 14.1 H (4.5-10.0) K/mm3 RBC 5.41 (4.6-6.20) M/mm3 Hgb 14.9 (14.0-18.0) g/dL Hct 46.5 (42.0-52.0) % MCV 86.0 (80-100) fl MCH 27.5 (26-34) pg MCHC 32.0 (32-36) g/dl RDW 14.0 (11.5-14.5) % Plt Count 504 H (150-375) k/mm3 MPV 9.9 (7.4-10.4) fl Immature Gran % (Auto) 1.0 H (0-0.5) % Neut % (Auto) 66.4 (45.5-73.1) % Lymph % (Auto) 24.6 (18.3-44.2) % Burke % (Auto) 5.2 (2.6-8.5) % Eos % (Auto) 2.4 (0-4.4) % Baso % (Auto) 0.4 (0.2-1.2) % Lymph # (Auto) 3.45 H (0.9-3.2) K/mm3 Burke # (Auto) 0.7 H (0.1-0.6) K/mm3 Eos # (Auto) 0.3 (0-0.3) K/mm3 Baso # (Auto) 0.1 (0.0-0.1) K/mm3 Abs Immat Gran (auto) 0.14 H (0.00-0.031) K/mm3 Absolute Neuts (auto) 9.3 H (1.3-6.7) K/mm3 Absolute Nucleated RBC 0.000 (0.0-0.012) K/mm3 Nucleated RBC % 0.0 (0.0-0.2) % Sodium 135 L (137-145) mmol/L Potassium 3.4 (3.4-5.0) mmol/L Chloride 95 L (98-107) mmol/L Carbon Dioxide 29 (22-30) mmol/L Anion Gap 11 (4-12) mmol/L BUN 8 L (9-20) mg/dL Creatinine 0.98 (0.7-1.3) mg/dL Estim Creat Clear Calc 141 ml/min Estimated GFR > 60 (59 - ) Glucose 148 H (65-110) mg/dL Lactic Acid 1.2 (0.7-2.0) mmol/L Calcium 9.0 (8.4-10.2) mg/dL Magnesium 1.9 (1.6-2.3) mg/dL Total Bilirubin 1.0 (0.2-1.3) mg/dL AST 28 (17-59) U/L ALT 24 (6-50) U/L Alkaline Phosphatase 136 H (38-126) U/L Total Protein 8.0 (6.3-8.2) g/dL Albumin 4.1 (3.5-5.1) g/dL Lipase 37 (23-300) U/L Procalcitonin 0.1 ng/mL Urine Color Yellow (Yellow) Urine Appearance Clear (Clear) Urine pH 6.0 (5.0-9.0) Ur Specific [place] 1.012 (1.001-1.035) Urine Protein Negative (Negative) mg/dL Urine Glucose (UA) Negative (Negative) mg/dL Urine Ketones 1+ H (Negative) mg/dL Ur Blood (Man) Negative (Negative) Urine Nitrate Negative (Negative) Urine Bilirubin Negative (Negative) Urine Urobilinogen 1.0 (<2.0) mg/dL Leukocyte Esterase Rfl Negative (Negative) GARIMA/UL Influenza A (RT-PCR) Negative (Negative) Influenza B (RT-PCR) Negative (Negative) RSV (RT-PCR) Negative (Negative) SARS-CoV-2 RNA (RT-PCR) Negative (Negative) Discharge Plan Discharge Clinical Impression: Acute diverticulitis Patient Disposition: Home, Self-Care Condition: Stable Instructions: Antibiotic Form, Diverticulitis (ED) Patient Language: [place] Prescriptions: New ciprofloxacin HCl 500 mg tablet 500 mg PO Q12H 10 Days Qty: 20 0RF metronidazole 500 mg tablet 500 mg PO Q8H 10 Days Qty: 30 0RF No Action colestipol 1 gram tablet 1 g PO ONCE pantoprazole 20 mg tablet,delayed release (DR/EC) 20 mg PO QAM famotidine 40 mg tablet 40 mg PO DAILY glimepiride 1 mg tablet 1 mg PO QAM Rx Instructions: administer with breakfast tramadol 50 mg tablet 50 mg PO Q6H PRN Follow-up/Referrals: Khurram Shine MD [Physician] - UNKNOWN,DOCTOR [Primary Care Provider] - Time of Disposition: 05:28
[2025-02-05 03:23] VITALS: BP 152/92; PULSE 109; RESP 14; O2SAT 100
[2025-02-05 04:00] VITALS: BP 146/83; PULSE 105; RESP 17; O2SAT 96
[2025-02-05 05:01] VITALS: BP 179/99; PULSE 103; RESP 16; O2SAT 96
[2025-02-05] MEDS: CIPROFLOXACIN 500 MG TAB PO (06:05)
[2025-02-05] MEDS: metroNIDAZOLE 500 MG TABLET PO (06:05)
== END 2025-02-05 06:22 | disposition home or self-care (01) ==
PROVIDERS: Emergency Provider Emergency Medicine
DX: K57.32 Diverticulitis of large intestine without perforation or abscess without bleeding (principal); I10 Essential (primary) hypertension; E78.5 Hyperlipidemia, unspecified; K21.9 Gastro-esophageal reflux disease without esophagitis; F32.A Depression, unspecified; Z87.440 Personal history of urinary (tract) infections; Z90.49 Acquired absence of other specified parts of digestive tract
CPT/HCPCS: 36415; 74177; 80053; 81003; 83605; 83690; 83735; 84145; 85025; 87637; 96360; 96361; 99284; A9270; J7030; Q9967